=== PATIENT | female | born 1940 | race Caucasian/White ===

== ENCOUNTER 2018-09-09 06:22 | Inpatient (IN) | payer MEDICARE, BC ==
[~2018-09-09 06:22] MED LIST: Lidocaine 1%/Sod Bicarbonate in NS 8.4% 1 ML Syringe IDERM PRN; Sodium Chloride 0.9% 10 ML Syringe FLUSH PRN
[2018-09-09] MEDS ORDERED: Bisacodyl 5 MG Tab PO PRN (06:36)
[2018-09-09] MEDS ORDERED: Morphine 2 MG/ML Syringe IVPUSH PRN (06:36)
[2018-09-09] MEDS ORDERED: Sennosides 8.6 MG Tab PO PRN (06:36)
[2018-09-09] MEDS ORDERED: Magnesium Hydroxide 400 MG/5 ML Susp 30 ML Cup PO PRN (06:36)
[2018-09-09] MEDS ORDERED: Naloxone 0.4 MG/ML SDV IVPUSH PRN (06:36)
[2018-09-09] MEDS: Lactated Ringers 1,000 ML IV SCH ×2 (06:45→11:21)
--- NOTE | 2018-09-09 06:48 | PCM.PREANE ---
Preanesthetic Assessment - Procedure Proposed Procedure: left total knee- inject right - Anesthesia/Transfusion/Family Hx Anesthesia History: Prior Anesthesia Without Reaction Family History of Anesthesia Reaction: No Transfusion History: Prior Transfusion Without Reaction - Review of Systems General: No Symptoms Pulmonary: No Symptoms Cardiovascular: No Symptoms Gastrointestinal: No Symptoms Neurological: No Symptoms, Difficulty Walking (becvause of the knee) Other: Reports: Easy Bruising - Physical Assessment NPO Status Date: 09/08/18 NPO Status Time: 21:00 (sip of water with pills) Pulse: 85 O2 Sat by Pulse Oximetry: 90 Respiratory Rate: 16 Blood Pressure: 164/87 Temperature: 98.1 F Height: 4 ft 11 in Weight: 52.98 kg ASA Class: 2 Mental Status: Alert & Oriented x3 Airway Class: Mallampati = 1 Dentition: Reports: Normal Dentition Thyro-Mental Finger Breadths: 3 Mouth Opening Finger Breadths: 3 ROM/Head Extension: Full Lungs: Clear to Auscultation, Normal Respiratory Effort Cardiovascular: Regular Rate, Regular Rhythm - Lab Values: Laboratory Last Values MRSA (PCR) Negative 08/28/18 14:11 - Allergies Allergies/Adverse Reactions: Allergies Allergy/AdvReac Type Severity Reaction Status Date / Time codeine Allergy Nausea Verified 09/06/18 11:24 - Blood Blood Available: No - Acknowledgements Anesthesia Type Planned: General Anesthesia, Spinal Pt an Appropriate Candidate for the Planned Anesthesia: Yes Alternatives and Risks of Anesthesia Discussed w Pt/Guardian: Yes Pt/Guardian Understands and Agrees with Anesthesia Plan: Yes PreAnesthesia Questionnaire HEENT History: Reports: Impaired Vision Cardiovascular History: Reports: Hypertension Respiratory History: Reports: None Genitourinary History: Reports: None 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: Musculoskeletal History: Reports: Arthritis, Other (See Below) Other Musculoskeletal History: restless leg syndrome, polio with back surgery/ hardware Psychiatric History: Reports: Anxiety, Depression Endocrine/Metabolic History: Reports: None Hematologic History: Reports: None Immunologic History: Reports: None Oncologic (Cancer) History: Reports: None Dermatologic History: Reports: None - Past Surgical History Head Surgeries/Procedures: Reports: None HEENT Surgical History: Reports: Tonsillectomy Cardiovascular Surgical History: Reports: None Respiratory Surgical History: Reports: None GI Surgical History: Reports: Appendectomy Female Surgical History: Reports: Section Male Surgical History: Reports: None Endocrine Surgical History: Reports: None Neurological Surgical History: Reports: Other (See Below) Other Neurological Surgeries/Procedures: polio with back hardware Musculoskeletal Surgical History: Reports: Other (See Below) Other Musculoskeletal Surgeries/Procedures:: left foot surgery Oncologic Surgical History: Reports: None Dermatological Surgical History: Reports: None - History Comment History Comment: severe back deformity- family requests spinal- i assured I would try that first and if not do general - SUBSTANCE USE Smoking Status *Q: Former Smoker (quit 4 weeks ago) Tobacco Use Within Last Twelve Months: Cigarettes Second Hand Smoke Exposure: No Days Per Week of Alcohol Use: 0 Recreational Drug Use History: No - HOME MEDS Home Medications: Home Meds Aspirin 325 mg PO DAILY 09/06/18 [History] Losartan [Cozaar] 50 mg PO DAILY 09/06/18 [History] Losartan [Cozaar] 100 mg PO DAILY 09/06/18 [History] Multivitamin [Daily Multiple Vitamin] 1 tab PO DAILY 09/06/18 [History] Naproxen Sodium 220 mg PO BID 09/06/18 [History] Pramipexole [Mirapex] 0.25 mg PO BEDTIME PRN 09/06/18 [History] clonazePAM [Clonazepam] 1 mg PO BEDTIME PRN 09/06/18 [History] tiZANidine [Zanaflex] 4 mg PO BEDTIME 09/06/18 [History] - CURRENT (IN HOUSE) MEDS Current Meds: Current Medications Lactated Ringer's (Ringers, Lactated) 1,000 mls @ 125 mls/hr IV ASDIRECTED DARLYN Lidocaine/Sodium Bicarbonate (Buffered Lidocaine 1% In Ns 8.4%) 0.25 ml IDERM ONETIME PRN PRN Reason: Prior to IV Start Sodium Chloride (Saline Flush) 10 ml FLUSH ASDIRECTED PRN PRN Reason: Keep Vein Open Discontinued Medications Cefazolin Sodium (Ancef) Confirm Administered Dose 2 gm .ROUTE .STK-MED ONE Stop: 09/09/18 06:41 Tranexamic Acid (Cyklokapron) Confirm Administered Dose 1,000 mg .ROUTE .STK- MED ONE Stop: 09/09/18 06:40 Triamcinolone Acetonide (Kenalog-40) Confirm Administered Dose 80 mg .ROUTE .STK -MED ONE Stop: 09/09/18 06:40 Vancomycin HCl (Vancomycin) Confirm Administered Dose 1 gm .ROUTE .[facility] ONE Stop: 09/09/18 06:41
[2018-09-09] MEDS ORDERED: Ropivacaine 0.5% 5 MG/ML 30 ML SDV ONE (07:47)
[2018-09-09] MEDS ORDERED: EPINEPHrine 1 MG/ML SDV ONE (07:47)
[2018-09-09] MEDS ORDERED: Ondansetron 4 MG/2 ML SDV IVPUSH PRN (07:54)
[2018-09-09] MEDS ORDERED: fentaNYL 100 MCG/2 ML SDV IVPUSH PRN (07:54)
[2018-09-09] MEDS ORDERED: HYDROmorphone 0.5 MG/0.5 ML Syringe IVPUSH PRN (07:54)
[2018-09-09] MEDS ORDERED: Midazolam 1 MG/ML 2 ML SDV ONE (07:59)
[2018-09-09] MEDS ORDERED: ePHEDrine/Normal Saline 25 MG/5 ML Syringe ONE (07:59)
[2018-09-09] MEDS ORDERED: fentaNYL 100 MCG/2 ML SDV ONE ×2 (07:59→09:14)
[2018-09-09] MEDS ORDERED: fentaNYL 250 MCG/5 ML SDV ONE (07:59)
[2018-09-09] MEDS ORDERED: ceFAZolin 1 GM Vial ONE (07:59)
[2018-09-09] MEDS ORDERED: Propofol 200 MG/20 ML SDV ONE (07:59)
[2018-09-09] MEDS ORDERED: Lactated Ringers 1,000 ML ONE (07:59)
[2018-09-09] MEDS ORDERED: Ketamine 500 mg/10 ML MDV ONE (07:59)
[2018-09-09] MEDS ORDERED: Lidocaine 1% 4 ML ONE (07:59)
--- NOTE | 2018-09-09 08:02 | PCM.CONS ---
H&P History of Present Illness - General Date of Service: 09/09/18 Admit Problem/Dx: Admission Diagnosis/Problem Admission Diagnosis/Problem Osteoarthritis of knee Source of Information: Patient, Old Records, Provider, RN, RN Notes Reviewed History Limitations: Reports: No Limitations - History of Present Illness Initial Comments - Free Text/Narative: Ian Do is a 78 yo female patient of Dr. Aiken who is post-operative day 0 of left TKA. Hospital medicine was consulted for post-operative medical care. At this time she is resting comfortably in bed. Pain is Controlled. She denies any chest pain, shortness of breath, palpitations, or vomiting. She is mildly nauseated. She carries a history of: HTN, Polio with back surgery/hardware, Anxiety, Depression, DJD, Insomnia, Leg cramps, RLS, HLD, Kyphoscoliosis. She is a former smoker. She is a full code. Her primary care provider is Dr. Orosco. Knee Pain Score (Numeric/FACES): 12 - Related Data Allergies/Adverse Reactions: Allergies Allergy/AdvReac Type Severity Reaction Status Date / Time codeine Allergy Nausea Verified 09/09/18 07:47 Home Medications: Home Meds Aspirin 325 mg PO DAILY 09/06/18 [History] Losartan [Cozaar] 100 mg PO DAILY 09/06/18 [History] Multivitamin [Daily Multiple Vitamin] 1 tab PO DAILY 09/06/18 [History] Naproxen Sodium 220 mg PO BID 09/06/18 [History] Pramipexole [Mirapex] 0.25 mg PO BEDTIME PRN 09/06/18 [History] clonazePAM [Clonazepam] 1 mg PO BEDTIME PRN 09/06/18 [History] tiZANidine [Zanaflex] 4 mg PO BEDTIME 09/06/18 [History] Cholecalciferol (Vitamin D3) [Vitamin D3] 1 cap PO DAILY 09/09/18 [History] Past Medical History HEENT History: Reports: Impaired Vision Cardiovascular History: Reports: Hypertension Respiratory History: Reports: None Genitourinary History: Reports: None 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: Musculoskeletal History: Reports: Arthritis, Other (See Below) Other Musculoskeletal History: restless leg syndrome, polio with back surgery/ hardware Psychiatric History: Reports: Anxiety, Depression Endocrine/Metabolic History: Reports: None Hematologic History: Reports: None Immunologic History: Reports: None Oncologic (Cancer) History: Reports: None Dermatologic History: Reports: None - Past Surgical History Head Surgeries/Procedures: Reports: None HEENT Surgical History: Reports: Tonsillectomy Cardiovascular Surgical History: Reports: None Respiratory Surgical History: Reports: None GI Surgical History: Reports: Appendectomy Female Surgical History: Reports: Section Male Surgical History: Reports: None Endocrine Surgical History: Reports: None Neurological Surgical History: Reports: Other (See Below) Other Neurological Surgeries/Procedures: polio with back hardware Musculoskeletal Surgical History: Reports: Other (See Below) Other Musculoskeletal Surgeries/Procedures:: left foot surgery Oncologic Surgical History: Reports: None Dermatological Surgical History: Reports: None - History Comment History Comment: severe back deformity- family requests spinal- i assured I would try that first and if not do general Social & Family History - Tobacco Use Smoking Status *Q: Former Smoker (quit 4 weeks ago) Used Tobacco, but Quit: Yes Month/Year Tobacco Last Used: 07/2018 Second Hand Smoke Exposure: No - Caffeine Use Caffeine Use: Reports: Coffee - Alcohol Use Days Per Week of Alcohol Use: 0 - Recreational Drug Use Recreational Drug Use: No H&P Review of Systems - Review of Systems: Review Of Systems: See Below General: Reports: No Symptoms. Denies: Fever, Chills HEENT: Reports: No Symptoms. Denies: Headaches, Sore Throat Pulmonary: Reports: No Symptoms. Denies: Shortness of Breath, Wheezing, Pleuritic Chest Pain, Cough, Sputum Cardiovascular: Reports: No Symptoms. Denies: Chest Pain, Palpitations, Dyspnea on Exertion, Syncope Gastrointestinal: Reports: Nausea. Denies: Abdominal Pain, Constipation, Diarrhea, Vomiting Genitourinary: Reports: No Symptoms. Denies: Pain Musculoskeletal: Reports: Leg Pain Skin: Reports: No Symptoms. Denies: Cyanosis Psychiatric: Reports: No Symptoms. Denies: Confusion Neurological: Reports: No Symptoms Hematologic/Lymphatic: Reports: No Symptoms Immunologic: Reports: No Symptoms Exam - Exam Exam: See Below - Vital Signs Vital Signs: Last Vital Signs Temp 98.1 F 09/09/18 06:56 Pulse 85 09/09/18 06:56 Resp 16 09/09/18 06:56 BP 164/87 H 09/09/18 06:56 Pulse Ox 90 L 09/09/18 06:56 Weight: 116 lb 12.8 oz - Exam Quality Assessment: DVT Prophylaxis General: Alert, Oriented, Cooperative. No: Mild Distress HEENT: Conjunctiva Clear, EACs Clear, EOMI, Hearing Intact, Mucosa Moist & [place] , Normal Nasal Septum, Posterior Pharynx Clear, PERRLA Neck: Supple, Trachea Midline Lungs: Clear to Auscultation, Normal Respiratory Effort Cardiovascular: Regular Rate, Regular Rhythm GI/Abdominal Exam: Normal Bowel Sounds, Soft, Non-Tender, No Organomegaly, No Distention (Female) Exam: Deferred Rectal (Female) Exam: Deferred Back Exam: Decreased Range of Motion Extremities: No Pedal Edema, Normal Capillary Refill, Leg Pain, Limited Range of Motion, Other (Bandage on left leg. Bandage is dry and intact. Cooling pack in place. ) Peripheral Pulses: 2+: Radial (L), Radial (R), Dorsalis Pedis (L), Dorsalis Pedis (R) Skin: Warm, Dry, Intact Neurological: Cranial Nerves Intact (Grossly ) Neuro Extensive - Mental Status: Alert, Oriented x3, Normal Mood/Affect Consult PN Assessment/Plan POD#: 0 Procedures: Procedures ASSAY OF PREALBUMIN (09/03/18) ASSAY OF SERUM ALBUMIN (09/03/18) BL SMEAR W/DIFF WBC COUNT (09/03/18) COMPLETE CBC AUTOMATED (09/03/18) METABOLIC PANEL TOTAL CA (09/03/18) PROTHROMBIN TIME (09/03/18) ROUTINE VENIPUNCTURE (09/03/18) THROMBOPLASTIN TIME PARTIAL (09/03/18) X-RAY EXAM CHEST 2 VIEWS (09/03/18) (1) S/P total knee arthroplasty SNOMED Code(s): 5078105000347, 859321150, 9889953303689 Code(s): Z96.659 - PRESENCE OF UNSPECIFIED ARTIFICIAL KNEE JOINT Priority: High Current Visit: Yes Qualifiers: Laterality: left Qualified Code(s): Z96.652 - Presence of left artificial knee joint (2) Osteoarthritis SNOMED Code(s): 000086356 Code(s): M19.90 - UNSPECIFIED OSTEOARTHRITIS, UNSPECIFIED SITE Priority: High Current Visit: Yes Qualifiers: Osteoarthritis location: knee Osteoarthritis type: primary Laterality: left Qualified Code(s): M17.12 - Unilateral primary osteoarthritis, left knee (3) HTN (hypertension) SNOMED Code(s): 06355657 Code(s): I10 - ESSENTIAL (PRIMARY) HYPERTENSION Priority: Medium Current Visit: No Qualifiers: Hypertension type: unspecified Qualified Code(s): I10 - Essential (primary ) hypertension (4) Personal history of poliomyelitis SNOMED Code(s): 912207671 Code(s): Z86.12 - PERSONAL HISTORY OF POLIOMYELITIS Priority: Medium Current Visit: No (5) Insomnia SNOMED Code(s): 006958283 Code(s): G47.00 - INSOMNIA, UNSPECIFIED Priority: Low Current Visit: No Qualifiers: Insomnia type: unspecified Qualified Code(s): G47.00 - Insomnia, unspecified (6) RLS (restless legs syndrome) SNOMED Code(s): 66836927 Code(s): G25.81 - RESTLESS LEGS SYNDROME Current Visit: Yes (7) HLD (hyperlipidemia) SNOMED Code(s): 11192217 Code(s): E78.5 - HYPERLIPIDEMIA, UNSPECIFIED Priority: Low Current Visit : No Qualifiers: Hyperlipidemia type: unspecified Qualified Code(s): E78.5 - Hyperlipidemia , unspecified (8) Kyphoscoliosis SNOMED Code(s): 764303723 Code(s): M41.9 - SCOLIOSIS, UNSPECIFIED Priority: Low Current Visit: No (9) Postoperative nausea SNOMED Code(s): 95350619 Code(s): R11.0 - NAUSEA; Z98.890 - OTHER SPECIFIED POSTPROCEDURAL STATES Priority: High Current Visit: Yes Problem List Initiated/Reviewed/Updated: Yes Plan: I/P: Acute: S/P left total knee arthroplasty - post-operative day 0 -DVT prophylaxis and pain management per primary care team -PT/OT -IS/RT -Monitor oxygen saturation -Titrate oxygen as needed -Home medications reviewed -Vital signs stable -Monitor labs -Pre-operative Hgb was 13.7 -Pre-operative GFR was >60 Osteoarthritis of left knee -Pain management per primary care team Post-operative nausea -Waxes and wanes -Zofran given with minimal improvement -Scopolamine ordered Chronic: HTN Polio with back surgery/hardware Anxiety Depression DJD Insomnia Leg cramps RLS HLD Kyphoscoliosis Plan: CM for discharge planning GI prophylaxis Home medications as indicated Other orders as listed above Routine AM labs She is a full code. Her PCP is Dr. Orosco Thank you for allowing us to participate in the care of this patient!! Requesting Provider: Dr. Aiken Date Consult Requested: 09/09/18 Reason for Consult: Post-operative medical management Patient History Reviewed: Yes Admission H&P Reviewed: Yes Time Spent (in minutes): 40
[2018-09-09] MEDS: Iodine/Sodium Iodide 2% Tincture 30 ML Bottle ONE ×2 (08:35→09:26)
[2018-09-09] MEDS ORDERED: Ondansetron 4 MG/2 ML SDV ONE (08:35)
[2018-09-09] MEDS: ceFAZolin 1 GM Vial ONE ×2 (08:35→09:30)
[2018-09-09] MEDS: Bupivacaine 0.25% 30 ML SDV ONE ×4 (08:36→10:02)
[2018-09-09] MEDS: Vancomycin 1 GM SDV ONE ×2 (08:36→09:36)
[2018-09-09] MEDS: Morphine 8 MG, EPINEPHrine 0.3 MG, Cefuroxime 750 MG, Ketorolac 30 MG, Sodium Chloride ... ONE ×10 (08:36→09:33)
[2018-09-09] MEDS: Triamcinolone Acetonide 40 MG/ML 1 ML MDV ONE ×2 (08:37→10:02)
--- NOTE | 2018-09-09 10:25 | PCM.POSTAN ---
POST ANESTHESIA ASSESSMENT - MENTAL STATUS Mental Status: Somnolent - VITAL SIGNS Pulse Rate: 91 SaO2: 97 Resp Rate: 12 Blood Pressure: 158/73 Temperature: 98.6 F - RESPIRATORY Respiratory Status: Respiratory Rate WNL, Airway Patent, O2 Saturation Stable, Supplemental Oxygen - CARDIOVASCULAR CV Status: Pulse Rate WNL, Blood Pressure Stable - GASTROINTESTINAL GI Status: No Symptoms - PAIN Pain Score: 0 - POST OP HYDRATION Hydration Status: Adequate & Stable
--- NOTE | 2018-09-09 10:41 | PCM.SN ---
- Free Text/Narrative Note: Left selective femoral nerve block at the adductor canal for post-procedure pain control under US guidance requested by Dr. Aiken. Time Out: 1030 Start: 1032 End: 103 Chart reviewed. Consent signed. Questions answered. Appropriate monitors applied. Time out performed. Left mid-shaft femur identified with ultrasound, scanning medially of femur, the femoral artery in the adductor canal visualized , and the femoral nerve located laterally to the artery. The skin was prepped lateral to the ultrasound probe with chlorahexadine times two. The 21ga 4 insulated block needle was inserted under direct ultrasound guidance into the adductor canal. 25mL of 0.5% ropivacaine with 1:200,000 epinephrine was injected circumferentially around the nerve with intermittent negative aspiration noted. Patient tolerated the procedure well. Sterile technique noted along with sterile gloves, mask, and sterile probe cover. See picture on progress note and vital signs on nurses notes. Block completed in PACU. Emanuel Swartz CRNA
--- NOTE | 2018-09-09 11:06 | CR ---
Left knee: AP and lateral views of the left knee were obtained. Comparison: No previous knee study. Knee prosthesis is seen. Components are aligned. Soft tissue air is noted from the surgical procedure. Underlying bony structures are unremarkable. Impression: 1. Satisfactory postop radiographic appearance of recently placed left knee prosthesis. Diagnostic code #2
[2018-09-09] MEDS: Ondansetron 4 MG/2 ML SDV IVPUSH PRN ×2 (12:39→19:18)
[2018-09-09] MEDS: Acetaminophen/HYDROcodone 325-5 MG Tab PO PRN (12:44)
[2018-09-09] MEDS: Famotidine 20 MG Tab PO SCH ×3 (14:24→18:40)
[2018-09-09] MEDS: ceFAZolin 2 GM in Premix Bag 1 BAG IV SCH ×2 (14:48→22:00)
[2018-09-09] MEDS: Scopolamine 1.5 MG Transdermal Patch TRDERM SCH (17:46)
[2018-09-09] MEDS ORDERED: ClonazePAM 1 MG Tab PO PRN (21:00)
[2018-09-09] MEDS: Docusate Sodium 100 MG Cap PO SCH (21:57)
[2018-09-10] MEDS: Ketorolac 15 MG/ML SDV IVPUSH PRN ×2 (05:00→17:25)
[2018-09-10] MEDS: Famotidine 20 MG Tab PO SCH ×2 (06:14→18:47)
[2018-09-10] MEDS: ceFAZolin 2 GM in Premix Bag 1 BAG IV SCH (06:14)
--- NOTE | 2018-09-10 06:29 | PCM.CONSN ---
- General Info Date of Service: 09/10/18 Admission Dx/Problem (Free Text): Admission Diagnosis/Problem Admission Diagnosis/Problem Osteoarthritis of knee Subjective Update: In to see Neeta. She reports she has been up ambulating and has urinated several times. RT is attempting to wean her off of oxygen. Labs and vital signs continue to look good. She did have some issues with nausea and pain earlier in the day however this has resolved. Primary team reports she will likely be held over until tomorrow for continued work with therapies and work on weaning off of oxygen. Functional Status: Reports: Pain Controlled, Tolerating Diet, Urinating, Incentive Spirometry. Denies: New Symptoms - Review of Systems General: Reports: No Symptoms. Denies: Fever, Chills HEENT: Reports: No Symptoms. Denies: Headaches, Sore Throat Pulmonary: Reports: No Symptoms. Denies: Shortness of Breath, Pleuritic Chest Pain, Cough, Sputum, Wheezing Cardiovascular: Reports: No Symptoms. Denies: Chest Pain, Palpitations, Dyspnea on Exertion, Orthopnea, Edema Gastrointestinal: Reports: No Symptoms. Denies: Abdominal Pain, Constipation, Diarrhea, Nausea, Vomiting Genitourinary: Reports: No Symptoms. Denies: Pain Musculoskeletal: Reports: Leg Pain Skin: Reports: No Symptoms. Denies: Cyanosis Neurological: Reports: No Symptoms. Denies: Confusion Psychiatric: Reports: No Symptoms - Patient Data Vitals - Most Recent: Last Vital Signs Temp 98.1 F 09/10/18 05:06 Pulse 85 09/10/18 05:06 Resp 18 09/10/18 05:06 BP 131/58 L 09/10/18 05:06 Pulse Ox 95 09/10/18 05:06 Weight - Most Recent: 120 lb 3 oz I&O - Last 24 Hours: Intake & Output 09/09/18 09/09/18 09/10/18 14:59 22:59 06:59 Intake Total 300 1870 250 Balance 300 1870 250 Med Orders - Current: Current Medications Hydrocodone Bitart/Acetaminophen ([place] 325-5 Mg) 1 - 2 tab PO Q4H PRN PRN Reason: Pain Last Admin: 09/09/18 12:44 Dose: 2 tab Aspirin (Ecotrin) 325 mg PO BID [facility] Bisacodyl (Dulcolax) 5 mg PO DAILY PRN PRN Reason: Constipation Cholecalciferol (Vitamin D3) 1,000 units PO DAILY [facility] Clonazepam (Klonopin) 1 mg PO BEDTIME PRN PRN Reason: Insomnia Docusate Sodium (Colace) 100 mg PO BID [facility] Last Admin: 09/09/18 21:57 Dose: 100 mg Famotidine (Pepcid) 20 mg PO Q12H [facility] Last Admin: 09/10/18 06:14 Dose: 20 mg Cefazolin Sodium/Dextrose 2 gm (/ Premix) 50 mls @ 100 mls/hr IV Q8H [facility] Stop: 09/10/18 07:29 Last Admin: 09/10/18 06:14 Dose: 100 mls/hr Ketorolac Tromethamine (Toradol) 15 mg IVPUSH Q6H PRN PRN Reason: Pain Last Admin: 09/10/18 05:00 Dose: 15 mg Losartan Potassium (Cozaar) 100 mg PO DAILY [facility] Magnesium Hydroxide (Milk Of Magnesia) 30 ml PO BID PRN PRN Reason: Constipation Miscellaneous Information (Remove Patch) 1 ea TRDERM Q72H [facility] Morphine Sulfate (Morphine) 2 mg IVPUSH Q2H PRN PRN Reason: Breakthrough Pain Multivitamins (Thera) 1 each PO DAILY [facility] Naloxone HCl (Narcan) 0.1 mg IVPUSH Q5M PRN PRN Reason: Oversedation Ondansetron HCl (Zofran) 4 mg IVPUSH Q6H PRN PRN Reason: Nausea/Vomiting Last Admin: 09/09/18 19:18 Dose: 4 mg Pramipexole Dihydrochloride (Mirapex) 0.25 mg PO BEDTIME PRN PRN Reason: restless legs Scopolamine (Transderm-Scop) 1.5 mg TRDERM Q72H [facility] Last Admin: 09/09/18 17:46 Dose: 1.5 mg Senna (Senna) 8.6 mg PO BID PRN PRN Reason: Constipation Tizanidine HCl (Zanaflex) 2 mg PO Q8H PRN PRN Reason: Spasms Discontinued Medications Bupivacaine HCl (Marcaine 0.25%) Confirm Administered Dose 30 ml .ROUTE .STK- MED ONE Stop: 09/09/18 06:41 Last Admin: 09/09/18 10:02 Dose: 4 ml Cefazolin Sodium (Ancef) Confirm Administered Dose 2 gm .ROUTE .STK-MED ONE Stop: 09/09/18 06:41 Last Admin: 09/09/18 09:30 Dose: 2 gm Cefazolin Sodium (Ancef) Confirm Administered Dose 2 gm .ROUTE .STK-MED ONE Stop: 09/09/18 08:00 Morphine Sulfate 8 mg/Epinephrine HCl 0.3 mg/Cefuroxime Sodium 750 mg/Ketorolac Tromethamine 30 mg/Sodium Chloride 27.9 ml 0 mg .XX ONETIME ONE Stop: 09/09/18 07:16 Last Admin: 09/09/18 09:33 Dose: 788.3 mg Ephedrine Sulfate (Ephedrine In Ns) Confirm Administered Dose 25 mg .ROUTE .STK- MED ONE Stop: 09/09/18 08:00 Epinephrine HCl (Adrenalin) Confirm Administered Dose 1 mg .ROUTE .STK-MED ONE Stop: 09/09/18 07:48 Fentanyl (Sublimaze) 50 mcg IVPUSH Q5M PRN PRN Reason: Pain Stop: 09/09/18 23:00 Fentanyl (Sublimaze) Confirm Administered Dose 100 mcg .ROUTE .STK-MED ONE Stop: 09/09/18 08:00 Fentanyl (Sublimaze) Confirm Administered Dose 250 mcg .ROUTE .STK-MED ONE Stop: 09/09/18 08:00 Fentanyl (Sublimaze) Confirm Administered Dose 100 mcg .ROUTE .STK-MED ONE Stop: 09/09/18 09:15 Hydromorphone HCl (Dilaudid) 0.5 mg IVPUSH Q10M PRN PRN Reason: Pain (severe 7-10) Stop: 09/09/18 23:00 Lactated Ringer's (Ringers, Lactated) 1,000 mls @ 125 mls/hr IV ASDIRECTED [facility] Stop: 09/09/18 23:00 Last Admin: 09/09/18 11:21 Dose: 125 mls/hr Lactated Ringer's (Ringers, Lactated) Confirm Administered Dose 1,000 mls @ as directed .ROUTE .STK-MED ONE Stop: 09/09/18 08:00 Lidocaine HCl (Xylocaine-Mpf 1%) Confirm Administered Dose 4 mls @ as directed .ROUTE .STK-MED ONE Stop: 09/09/18 08:00 Iodine (Iodine 2% Mild Tincture) Confirm Administered Dose 30 ml .ROUTE .STK- MED ONE Stop: 09/09/18 06:41 Last Admin: 09/09/18 09:26 Dose: 18 ml Ketamine HCl (Ketalar) Confirm Administered Dose 500 mg .ROUTE .STK-MED ONE Stop: 09/09/18 08:00 Lidocaine/Sodium Bicarbonate (Buffered Lidocaine 1% In Ns 8.4%) 0.25 ml IDERM ONETIME PRN PRN Reason: Prior to IV Start Midazolam HCl (Versed 1 Mg/Ml) Confirm Administered Dose 4 mg .ROUTE .STK-MED ONE Stop: 09/09/18 08:00 Ondansetron HCl (Zofran) 4 mg IVPUSH ONETIME PRN PRN Reason: Nausea/Vomiting Stop: 09/09/18 23:00 Ondansetron HCl (Zofran) Confirm Administered Dose 4 mg .ROUTE .STK-MED ONE Stop: 09/09/18 08:36 Propofol (Diprivan 20 Ml) Confirm Administered Dose 600 mg .ROUTE .STK-MED ONE Stop: 09/09/18 08:00 Ropivacaine (Naropin 0.5%) Confirm Administered Dose 30 ml .ROUTE .STK-MED ONE Stop: 09/09/18 07:48 Sodium Chloride (Saline Flush) 10 ml FLUSH ASDIRECTED PRN PRN Reason: Keep Vein Open Tranexamic Acid (Cyklokapron) Confirm Administered Dose 1,000 mg .ROUTE .STK- MED ONE Stop: 09/09/18 06:40 Last Admin: 09/09/18 09:45 Dose: 1,000 mg Triamcinolone Acetonide (Kenalog-40) Confirm Administered Dose 80 mg .ROUTE .STK -MED ONE Stop: 09/09/18 06:40 Last Admin: 09/09/18 10:02 Dose: 80 mg Vancomycin HCl (Vancomycin) Confirm Administered Dose 1 gm .ROUTE .STK-MED ONE Stop: 09/09/18 06:41 Last Admin: 09/09/18 09:36 Dose: 1 gm - Exam Quality Assessment: DVT Prophylaxis General: Alert, Oriented, Cooperative, No Acute Distress HEENT: Pupils Equal, Pupils Reactive, EOMI, Mucous Membr. Moist/[place] Neck: Supple, Trachea Midline Lungs: Clear to Auscultation, Normal Respiratory Effort Cardiovascular: Regular Rate, Regular Rhythm GI/Abdominal Exam: Normal Bowel Sounds, Soft, Non-Tender, No Organomegaly, No Distention (Female) Exam: Deferred Back Exam: Decreased Range of Motion Extremities: No Pedal Edema, Normal Capillary Refill, Leg Pain, Limited Range of Motion, Other (Bandage in place on left leg. Cooling pack in place. ) Peripheral Pulses: 2+: Radial (L), Radial (R), Dorsalis Pedis (L), Dorsalis Pedis (R) Skin: Warm, Dry, Intact Wound/Incisions: Dressing Dry and Intact, No Drainage Neurological: No New Focal Deficit Psy/Mental Status: Alert, Normal Affect, Normal Mood Consult PN Assessment/Plan POD#: 1 Procedures: Procedures ASSAY OF PREALBUMIN (09/03/18) ASSAY OF SERUM ALBUMIN (09/03/18) BL SMEAR W/DIFF WBC COUNT (09/03/18) COMPLETE CBC AUTOMATED (09/03/18) METABOLIC PANEL TOTAL CA (09/03/18) PROTHROMBIN TIME (09/03/18) ROUTINE VENIPUNCTURE (09/03/18) THROMBOPLASTIN TIME PARTIAL (09/03/18) X-RAY EXAM CHEST 2 VIEWS (09/03/18) (1) S/P total knee arthroplasty SNOMED Code(s): 7347748476982, 196406046, 7730195910542 Code(s): Z96.659 - PRESENCE OF UNSPECIFIED ARTIFICIAL KNEE JOINT Priority: High Current Visit: Yes Qualifiers: Laterality: left Qualified Code(s): Z96.652 - Presence of left artificial knee joint (2) Osteoarthritis SNOMED Code(s): 459618515 Code(s): M19.90 - UNSPECIFIED OSTEOARTHRITIS, UNSPECIFIED SITE Priority: High Current Visit: Yes Qualifiers: Osteoarthritis location: knee Osteoarthritis type: primary Laterality: left Qualified Code(s): M17.12 - Unilateral primary osteoarthritis, left knee (3) HTN (hypertension) SNOMED Code(s): 47402451 Code(s): I10 - ESSENTIAL (PRIMARY) HYPERTENSION Priority: Medium Current Visit: No Qualifiers: Hypertension type: unspecified Qualified Code(s): I10 - Essential (primary ) hypertension (4) Personal history of poliomyelitis SNOMED Code(s): 893076489 Code(s): Z86.12 - PERSONAL HISTORY OF POLIOMYELITIS Priority: Medium Current Visit: No (5) Insomnia SNOMED Code(s): 796343502 Code(s): G47.00 - INSOMNIA, UNSPECIFIED Priority: Low Current Visit: No Qualifiers: Insomnia type: unspecified Qualified Code(s): G47.00 - Insomnia, unspecified (6) RLS (restless legs syndrome) SNOMED Code(s): 19820182 Code(s): G25.81 - RESTLESS LEGS SYNDROME Current Visit: Yes (7) HLD (hyperlipidemia) SNOMED Code(s): 38365858 Code(s): E78.5 - HYPERLIPIDEMIA, UNSPECIFIED Priority: Low Current Visit : No Qualifiers: Hyperlipidemia type: unspecified Qualified Code(s): E78.5 - Hyperlipidemia , unspecified (8) Kyphoscoliosis SNOMED Code(s): 025338791 Code(s): M41.9 - SCOLIOSIS, UNSPECIFIED Priority: Low Current Visit: No (9) Postoperative nausea SNOMED Code(s): 92074859 Code(s): R11.0 - NAUSEA; Z98.890 - OTHER SPECIFIED POSTPROCEDURAL STATES Priority: High Current Visit: Yes Problem List Initiated/Reviewed/Updated: Yes My Orders Last 24 Hours: My Active Orders 09/09/18 17:00 Scopolamine [Transderm-Scop] 1.5 mg TRDERM Q72H Plan: I/P: Acute: S/P left total knee arthroplasty - post-operative day 1 -DVT prophylaxis and pain management per primary care team -PT/OT -IS/RT -Monitor oxygen saturation -Titrate oxygen as needed -Home medications reviewed -Vital signs stable -Monitor labs -Pre-operative Hgb was 13.7; Now 11.3 -Pre-operative GFR was >60; Now >60 Osteoarthritis of left knee -Pain management per primary care team Post-operative nausea -Waxes and wanes -Zofran given with minimal improvement -Scopolamine ordered Chronic: HTN Polio with back surgery/hardware Anxiety Depression DJD Insomnia Leg cramps RLS HLD Kyphoscoliosis Plan: CM for discharge planning GI prophylaxis Home medications as indicated Other orders as listed above Routine AM labs She is a full code. Her PCP is Dr. Orosco Thank you for allowing us to participate in the care of this patient!!
[2018-09-10] MEDS: Ondansetron 4 MG/2 ML SDV IVPUSH PRN (07:56)
--- NOTE | 2018-09-10 07:59 | PCM.SURGPN ---
- General Info Date of Service: 09/10/18 POD#: 1 Functional Status: Reports: Pain Controlled, Tolerating Diet, Ambulating, Urinating, Incentive Spirometry - Review of Systems Musculoskeletal: Reports: Other (The pt's daughter states the pt is progressing well.) - Patient Data Vitals - Most Recent: Last Vital Signs Temp 98.1 F 09/10/18 05:06 Pulse 85 09/10/18 05:06 Resp 18 09/10/18 05:06 BP 131/58 L 09/10/18 05:06 Pulse Ox 95 09/10/18 05:06 Weight - Most Recent: 120 lb 3 oz I&O - Last 24 Hours: Intake & Output 09/09/18 09/10/18 09/10/18 22:59 06:59 14:59 Intake Total 1870 250 Balance 1870 250 Lab Results Last 24 Hrs: Laboratory Results - last 24 hr 09/10/18 09/10/18 Range/Units 06:26 06:26 WBC 9.34 (3.98-10.04) K/mm3 RBC 3.78 L (3.98-5.22) M/mm3 Hgb 11.3 D (11.2-15.7) gm/L Hct 36.0 (34.1-44.9) % MCV 95.2 H (79.4-94.8) fl MCH 29.9 (25.6-32.2) pg MCHC 31.4 L (32.2-35.5) g/dl RDW Std Deviation 51.8 H (36.4-46.3) fL Plt Count 206 (182-369) K/mm3 MPV 11.1 (9.4-12.3) fl Sodium 140 (136-145) mEq/L Potassium 4.5 (3.5-5.1) mEq/L Chloride 104 (98-107) mEq/L Carbon Dioxide 32 (21-32) mEq/L Anion Gap 8.5 (5-15) BUN 16 (7-18) mg/dL Creatinine 0.7 (0.55-1.02) mg/dL Est Cr Clr Drug Dosing 49.11 mL/min Estimated GFR (MDRD) > 60 (>60) mL/min BUN/Creatinine Ratio 22.9 H (14-18) Glucose 92 (83-115) mg/dL Calcium 8.6 (8.5-10.1) mg/dL Total Bilirubin 0.4 (0.2-1.0) mg/dL AST 29 (15-37) U/L ALT 36 (14-59) U/L Alkaline Phosphatase 91 (46-116) U/L Total Protein 5.9 L (6.4-8.2) g/dl Albumin 2.8 L (3.4-5.0) g/dl Globulin 3.1 gm/dL Albumin/Globulin Ratio 0.9 L (1-2) Med Orders - Current: Current Medications Hydrocodone Bitart/Acetaminophen ([place] 325-5 Mg) 1 - 2 tab PO Q4H PRN PRN Reason: Pain Last Admin: 09/09/18 12:44 Dose: 2 tab Aspirin (Ecotrin) 325 mg PO BID [facility] Bisacodyl (Dulcolax) 5 mg PO DAILY PRN PRN Reason: Constipation Cholecalciferol (Vitamin D3) 1,000 units PO DAILY [facility] Clonazepam (Klonopin) 1 mg PO BEDTIME PRN PRN Reason: Insomnia Docusate Sodium (Colace) 100 mg PO BID [facility] Last Admin: 09/09/18 21:57 Dose: 100 mg Famotidine (Pepcid) 20 mg PO Q12H [facility] Last Admin: 09/10/18 06:14 Dose: 20 mg Ketorolac Tromethamine (Toradol) 15 mg IVPUSH Q6H PRN PRN Reason: Pain Last Admin: 09/10/18 05:00 Dose: 15 mg Losartan Potassium (Cozaar) 100 mg PO DAILY [facility] Magnesium Hydroxide (Milk Of Magnesia) 30 ml PO BID PRN PRN Reason: Constipation Miscellaneous Information (Remove Patch) 1 ea TRDERM Q72H [facility] Morphine Sulfate (Morphine) 2 mg IVPUSH Q2H PRN PRN Reason: Breakthrough Pain Multivitamins (Thera) 1 each PO DAILY [facility] Naloxone HCl (Narcan) 0.1 mg IVPUSH Q5M PRN PRN Reason: Oversedation Ondansetron HCl (Zofran) 4 mg IVPUSH Q6H PRN PRN Reason: Nausea/Vomiting Last Admin: 09/09/18 19:18 Dose: 4 mg Pramipexole Dihydrochloride (Mirapex) 0.25 mg PO BEDTIME PRN PRN Reason: restless legs Scopolamine (Transderm-Scop) 1.5 mg TRDERM Q72H [facility] Last Admin: 09/09/18 17:46 Dose: 1.5 mg Senna (Senna) 8.6 mg PO BID PRN PRN Reason: Constipation Tizanidine HCl (Zanaflex) 2 mg PO Q8H PRN PRN Reason: Spasms Discontinued Medications Bupivacaine HCl (Marcaine 0.25%) Confirm Administered Dose 30 ml .ROUTE .STK- MED ONE Stop: 09/09/18 06:41 Last Admin: 09/09/18 10:02 Dose: 4 ml Cefazolin Sodium (Ancef) Confirm Administered Dose 2 gm .ROUTE .STK-MED ONE Stop: 09/09/18 06:41 Last Admin: 09/09/18 09:30 Dose: 2 gm Cefazolin Sodium (Ancef) Confirm Administered Dose 2 gm .ROUTE .STK-MED ONE Stop: 09/09/18 08:00 Morphine Sulfate 8 mg/Epinephrine HCl 0.3 mg/Cefuroxime Sodium 750 mg/Ketorolac Tromethamine 30 mg/Sodium Chloride 27.9 ml 0 mg .XX ONETIME ONE Stop: 09/09/18 07:16 Last Admin: 09/09/18 09:33 Dose: 788.3 mg Ephedrine Sulfate (Ephedrine In Ns) Confirm Administered Dose 25 mg .ROUTE .STK- MED ONE Stop: 09/09/18 08:00 Epinephrine HCl (Adrenalin) Confirm Administered Dose 1 mg .ROUTE .STK-MED ONE Stop: 09/09/18 07:48 Fentanyl (Sublimaze) 50 mcg IVPUSH Q5M PRN PRN Reason: Pain Stop: 09/09/18 23:00 Fentanyl (Sublimaze) Confirm Administered Dose 100 mcg .ROUTE .STK-MED ONE Stop: 09/09/18 08:00 Fentanyl (Sublimaze) Confirm Administered Dose 250 mcg .ROUTE .STK-MED ONE Stop: 09/09/18 08:00 Fentanyl (Sublimaze) Confirm Administered Dose 100 mcg .ROUTE .STK-MED ONE Stop: 09/09/18 09:15 Hydromorphone HCl (Dilaudid) 0.5 mg IVPUSH Q10M PRN PRN Reason: Pain (severe 7-10) Stop: 09/09/18 23:00 Lactated Ringer's (Ringers, Lactated) 1,000 mls @ 125 mls/hr IV ASDIRECTED [facility] Stop: 09/09/18 23:00 Last Admin: 09/09/18 11:21 Dose: 125 mls/hr Cefazolin Sodium/Dextrose 2 gm (/ Premix) 50 mls @ 100 mls/hr IV Q8H [facility] Stop: 09/10/18 07:29 Last Admin: 09/10/18 06:14 Dose: 100 mls/hr Lactated Ringer's (Ringers, Lactated) Confirm Administered Dose 1,000 mls @ as directed .ROUTE .STK-MED ONE Stop: 09/09/18 08:00 Lidocaine HCl (Xylocaine-Mpf 1%) Confirm Administered Dose 4 mls @ as directed .ROUTE .STK-MED ONE Stop: 09/09/18 08:00 Iodine (Iodine 2% Mild Tincture) Confirm Administered Dose 30 ml .ROUTE .STK- MED ONE Stop: 09/09/18 06:41 Last Admin: 09/09/18 09:26 Dose: 18 ml Ketamine HCl (Ketalar) Confirm Administered Dose 500 mg .ROUTE .STK-MED ONE Stop: 09/09/18 08:00 Lidocaine/Sodium Bicarbonate (Buffered Lidocaine 1% In Ns 8.4%) 0.25 ml IDERM ONETIME PRN PRN Reason: Prior to IV Start Midazolam HCl (Versed 1 Mg/Ml) Confirm Administered Dose 4 mg .ROUTE .STK-MED ONE Stop: 09/09/18 08:00 Ondansetron HCl (Zofran) 4 mg IVPUSH ONETIME PRN PRN Reason: Nausea/Vomiting Stop: 09/09/18 23:00 Ondansetron HCl (Zofran) Confirm Administered Dose 4 mg .ROUTE .STK-MED ONE Stop: 09/09/18 08:36 Propofol (Diprivan 20 Ml) Confirm Administered Dose 600 mg .ROUTE .STK-MED ONE Stop: 09/09/18 08:00 Ropivacaine (Naropin 0.5%) Confirm Administered Dose 30 ml .ROUTE .STK-MED ONE Stop: 09/09/18 07:48 Sodium Chloride (Saline Flush) 10 ml FLUSH ASDIRECTED PRN PRN Reason: Keep Vein Open Tranexamic Acid (Cyklokapron) Confirm Administered Dose 1,000 mg .ROUTE .STK- MED ONE Stop: 09/09/18 06:40 Last Admin: 09/09/18 09:45 Dose: 1,000 mg Triamcinolone Acetonide (Kenalog-40) Confirm Administered Dose 80 mg .ROUTE .STK -MED ONE Stop: 09/09/18 06:40 Last Admin: 09/09/18 10:02 Dose: 80 mg Vancomycin HCl (Vancomycin) Confirm Administered Dose 1 gm .ROUTE .STK-MED ONE Stop: 09/09/18 06:41 Last Admin: 09/09/18 09:36 Dose: 1 gm - Exam Wound/Incisions: Dressing Dry and Intact General: Alert, Cooperative, No Acute Distress Lungs: Normal Respiratory Effort Extremities: Other (Rylee's negative for LLE. The pt was able to ambulate in room with assistance.) - Problem List Review Problem List Initiated/Reviewed/Updated: Yes - My Orders Last 24 Hours: Active Orders 24 hr Category Date Time Status Cooling Warming Measures [RC] ASDIRECTED Care 09/09/18 07:54 Inactive Oxygen Therapy [RC] ASDIRECTED Care 09/09/18 07:54 Inactive Pulse Oximetry [RC] ASDIRECTED Care 09/09/18 07:54 Active Vital Signs [RC] Q15M Care 09/09/18 07:54 Inactive Regular Diet [DIET] Diet 09/09/18 Lunch Active Aspirin [Ecotrin] Med 09/10/18 09:00 Active 325 mg PO BID Cholecalciferol (Vitamin D3) [Vitamin D3] Med 09/10/18 09:00 Active 1,000 units PO DAILY ClonazePAM [KlonoPIN] Med 09/09/18 21:00 Active 1 mg PO BEDTIME PRN Docusate Sodium [Colace] Med 09/09/18 21:00 Active 100 mg PO BID Famotidine [Pepcid] Med 09/09/18 07:00 Active 20 mg PO Q12H Ketorolac [Toradol] Med 09/09/18 09:00 Active 15 mg IVPUSH Q6H PRN Losartan [Cozaar] Med 09/10/18 09:00 Hold 100 mg PO DAILY Multivitamins,Therapeutic [Thera] Med 09/10/18 09:00 Active 1 each PO DAILY Pramipexole [Mirapex] Med 09/09/18 21:00 Active 0.25 mg PO BEDTIME PRN Remove Patch Med 09/12/18 17:00 Active 1 ea TRDERM Q72H Scopolamine [Transderm-Scop] Med 09/09/18 17:00 Active 1.5 mg TRDERM Q72H tiZANidine [Zanaflex] Med 09/09/18 12:55 Active 2 mg PO Q8H PRN Medication Orders Hydrocodone Bitart/Acetaminophen ([place] 325-5 Mg) 1 - 2 tab PO Q4H PRN PRN Reason: Pain Last Admin: 09/09/18 12:44 Dose: 2 tab Aspirin (Ecotrin) 325 mg PO BID [facility] Bisacodyl (Dulcolax) 5 mg PO DAILY PRN PRN Reason: Constipation Cholecalciferol (Vitamin D3) 1,000 units PO DAILY [facility] Clonazepam (Klonopin) 1 mg PO BEDTIME PRN PRN Reason: Insomnia Docusate Sodium (Colace) 100 mg PO BID [facility] Last Admin: 09/09/18 21:57 Dose: 100 mg Famotidine (Pepcid) 20 mg PO Q12H [facility] Last Admin: 09/10/18 06:14 Dose: 20 mg Admin: 09/09/18 18:40 Dose: Not Given Admin: 09/09/18 17:47 Dose: 20 mg Admin: 09/09/18 14:24 Dose: Ketorolac Tromethamine (Toradol) 15 mg IVPUSH Q6H PRN PRN Reason: Pain Last Admin: 09/10/18 05:00 Dose: 15 mg Losartan Potassium (Cozaar) 100 mg PO DAILY [facility] Magnesium Hydroxide (Milk Of Magnesia) 30 ml PO BID PRN PRN Reason: Constipation Miscellaneous Information (Remove Patch) 1 ea TRDERM Q72H [facility] Morphine Sulfate (Morphine) 2 mg IVPUSH Q2H PRN PRN Reason: Breakthrough Pain Multivitamins (Thera) 1 each PO DAILY [facility] Naloxone HCl (Narcan) 0.1 mg IVPUSH Q5M PRN PRN Reason: Oversedation Ondansetron HCl (Zofran) 4 mg IVPUSH Q6H PRN PRN Reason: Nausea/Vomiting Last Admin: 09/09/18 19:18 Dose: 4 mg Admin: 09/09/18 12:39 Dose: 4 mg Pramipexole Dihydrochloride (Mirapex) 0.25 mg PO BEDTIME PRN PRN Reason: restless legs Scopolamine (Transderm-Scop) 1.5 mg TRDERM Q72H [facility] Last Admin: 09/09/18 17:46 Dose: 1.5 mg Senna (Senna) 8.6 mg PO BID PRN PRN Reason: Constipation Tizanidine HCl (Zanaflex) 2 mg PO Q8H PRN PRN Reason: Spasms - Assessment Assessment (Free Text/Narrative):: POD#1 - left TKA - Plan Plan (Free Text/Narrative):: 1. Hgb 11.3. 2. ASA PO BID for VTE prophylaxis. SCDs, TEDs. 3. Suspect discharge to [facility] for continued therapy and monitoring due to significant co-morbidities. 4. Continue with P.T. and O.T. The pt's case was discussed with Dr. Aiken.
--- NOTE | 2018-09-10 08:01 | PCM48HPAN ---
Post Anesthesia Note - EVALUATION WITHIN 48HRS OF ANESTHETIC Vital Signs in Normal Range: Yes Patient Participated in Evaluation: Yes Respiratory Function Stable: Yes Airway Patent: Yes Cardiovascular Function Stable: Yes Hydration Status Stable: Yes Pain Control Satisfactory: Yes (pain last fabrizio) Nausea and Vomiting Control Satisfactory: Yes (still occasionally nauseated) Mental Status Recovered: Yes (sitting up in bed- denies pain at this time) Pulse Rate: 85 Resp Rate: 18 Temperature: 98.1 F Blood Pressure: 131/58
[2018-09-10] MEDS: Cholecalciferol (Vitamin D3) 1,000 Unit Tab PO SCH (09:09)
[2018-09-10] MEDS: Aspirin 325 MG Tab.EC PO SCH ×2 (09:10→20:36)
[2018-09-10] MEDS: Docusate Sodium 100 MG Cap PO SCH ×2 (09:10→20:34)
[2018-09-10] MEDS: Multivitamins,Therapeutic Tab PO SCH (09:10)
[2018-09-10] MEDS: Acetaminophen/HYDROcodone 325-5 MG Tab PO PRN ×4 (09:24→23:58)
[2018-09-10] MEDS: Pramipexole 0.25 MG Tab PO PRN (19:45)
[2018-09-10] MEDS: tiZANidine 4 MG Tab PO PRN (19:45)
[2018-09-11] MEDS: Acetaminophen/HYDROcodone 325-5 MG Tab PO PRN ×3 (03:59→12:14)
[2018-09-11] MEDS: Famotidine 20 MG Tab PO SCH (06:13)
--- NOTE | 2018-09-11 06:25 | PCM.CONSN ---
- General Info Date of Service: 09/11/18 Admission Dx/Problem (Free Text): Admission Diagnosis/Problem Admission Diagnosis/Problem Osteoarthritis of knee Functional Status: Reports: Pain Controlled, Tolerating Diet, Ambulating, Urinating, Incentive Spirometry. Denies: New Symptoms - Review of Systems General: Reports: No Symptoms. Denies: Fever, Weakness, Fatigue, Malaise, Chills HEENT: Reports: No Symptoms. Denies: Headaches, Sore Throat Pulmonary: Reports: Shortness of Breath. Denies: Wheezing Cardiovascular: Reports: No Symptoms, Dyspnea on Exertion. Denies: Chest Pain, Palpitations Gastrointestinal: Reports: No Symptoms. Denies: Abdominal Pain, Constipation, Diarrhea, Nausea, Vomiting Genitourinary: Reports: No Symptoms. Denies: Pain Musculoskeletal: Reports: Leg Pain Skin: Reports: No Symptoms. Denies: Cyanosis Neurological: Reports: No Symptoms. Denies: Confusion Psychiatric: Reports: No Symptoms - Patient Data Vitals - Most Recent: Last Vital Signs Temp 97.9 F 09/11/18 03:49 Pulse 87 09/11/18 04:15 Resp 16 09/11/18 03:49 BP 107/49 L 09/11/18 04:15 Pulse Ox 91 L 09/11/18 04:15 Weight - Most Recent: 121 lb 2 oz I&O - Last 24 Hours: Intake & Output 09/10/18 09/10/18 09/11/18 14:59 22:59 06:59 Intake Total 160 860 425 Output Total 625 150 Balance 160 235 275 Lab Results Last 24 Hours: Laboratory Results - last 24 hr 09/10/18 09/10/18 Range/Units 06:26 06:26 WBC 9.34 (3.98-10.04) K/mm3 RBC 3.78 L (3.98-5.22) M/mm3 Hgb 11.3 D (11.2-15.7) gm/L Hct 36.0 (34.1-44.9) % MCV 95.2 H (79.4-94.8) fl MCH 29.9 (25.6-32.2) pg MCHC 31.4 L (32.2-35.5) g/dl RDW Std Deviation 51.8 H (36.4-46.3) fL Plt Count 206 (182-369) K/mm3 MPV 11.1 (9.4-12.3) fl Sodium 140 (136-145) mEq/L Potassium 4.5 (3.5-5.1) mEq/L Chloride 104 (98-107) mEq/L Carbon Dioxide 32 (21-32) mEq/L Anion Gap 8.5 (5-15) BUN 16 (7-18) mg/dL Creatinine 0.7 (0.55-1.02) mg/dL Est Cr Clr Drug Dosing 49.11 mL/min Estimated GFR (MDRD) > 60 (>60) mL/min BUN/Creatinine Ratio 22.9 H (14-18) Glucose 92 (83-115) mg/dL Calcium 8.6 (8.5-10.1) mg/dL Total Bilirubin 0.4 (0.2-1.0) mg/dL AST 29 (15-37) U/L ALT 36 (14-59) U/L Alkaline Phosphatase 91 (46-116) U/L Total Protein 5.9 L (6.4-8.2) g/dl Albumin 2.8 L (3.4-5.0) g/dl Globulin 3.1 gm/dL Albumin/Globulin Ratio 0.9 L (1-2) Med Orders - Current: Current Medications Hydrocodone Bitart/Acetaminophen ([place] 325-5 Mg) 1 - 2 tab PO Q4H PRN PRN Reason: Pain Last Admin: 09/11/18 03:59 Dose: 1 tab Aspirin (Ecotrin) 325 mg PO BID [facility] Last Admin: 09/10/18 20:36 Dose: 325 mg Bisacodyl (Dulcolax) 5 mg PO DAILY PRN PRN Reason: Constipation Cholecalciferol (Vitamin D3) 1,000 units PO DAILY [facility] Last Admin: 09/10/18 09:09 Dose: 1,000 units Clonazepam (Klonopin) 1 mg PO BEDTIME PRN PRN Reason: Insomnia Docusate Sodium (Colace) 100 mg PO BID [facility] Last Admin: 09/10/18 20:34 Dose: 100 mg Famotidine (Pepcid) 20 mg PO Q12H [facility] Last Admin: 09/11/18 06:13 Dose: 20 mg Losartan Potassium (Cozaar) 100 mg PO DAILY [facility] Magnesium Hydroxide (Milk Of Magnesia) 30 ml PO BID PRN PRN Reason: Constipation Miscellaneous Information (Remove Patch) 1 ea TRDERM Q72H [facility] Morphine Sulfate (Morphine) 2 mg IVPUSH Q2H PRN PRN Reason: Breakthrough Pain Last Admin: 09/10/18 07:52 Dose: 2 mg Multivitamins (Thera) 1 each PO DAILY [facility] Last Admin: 09/10/18 09:10 Dose: 1 each Naloxone HCl (Narcan) 0.1 mg IVPUSH Q5M PRN PRN Reason: Oversedation Ondansetron HCl (Zofran) 4 mg IVPUSH Q6H PRN PRN Reason: Nausea/Vomiting Last Admin: 09/10/18 07:56 Dose: 4 mg Pramipexole Dihydrochloride (Mirapex) 0.25 mg PO BEDTIME PRN PRN Reason: restless legs Last Admin: 09/10/18 19:45 Dose: 0.25 mg Scopolamine (Transderm-Scop) 1.5 mg TRDERM Q72H [facility] Last Admin: 09/09/18 17:46 Dose: 1.5 mg Senna (Senna) 8.6 mg PO BID PRN PRN Reason: Constipation Tizanidine HCl (Zanaflex) 2 mg PO Q8H PRN PRN Reason: Spasms Last Admin: 09/10/18 19:45 Dose: 2 mg Discontinued Medications Bupivacaine HCl (Marcaine 0.25%) Confirm Administered Dose 30 ml .ROUTE .STK- MED ONE Stop: 09/09/18 06:41 Last Admin: 09/09/18 10:02 Dose: 4 ml Cefazolin Sodium (Ancef) Confirm Administered Dose 2 gm .ROUTE .STK-MED ONE Stop: 09/09/18 06:41 Last Admin: 09/09/18 09:30 Dose: 2 gm Cefazolin Sodium (Ancef) Confirm Administered Dose 2 gm .ROUTE .STK-MED ONE Stop: 09/09/18 08:00 Morphine Sulfate 8 mg/Epinephrine HCl 0.3 mg/Cefuroxime Sodium 750 mg/Ketorolac Tromethamine 30 mg/Sodium Chloride 27.9 ml 0 mg .XX ONETIME ONE Stop: 09/09/18 07:16 Last Admin: 09/09/18 09:33 Dose: 788.3 mg Ephedrine Sulfate (Ephedrine In Ns) Confirm Administered Dose 25 mg .ROUTE .STK- MED ONE Stop: 09/09/18 08:00 Epinephrine HCl (Adrenalin) Confirm Administered Dose 1 mg .ROUTE .STK-MED ONE Stop: 09/09/18 07:48 Fentanyl (Sublimaze) 50 mcg IVPUSH Q5M PRN PRN Reason: Pain Stop: 09/09/18 23:00 Fentanyl (Sublimaze) Confirm Administered Dose 100 mcg .ROUTE .STK-MED ONE Stop: 09/09/18 08:00 Fentanyl (Sublimaze) Confirm Administered Dose 250 mcg .ROUTE .STK-MED ONE Stop: 09/09/18 08:00 Fentanyl (Sublimaze) Confirm Administered Dose 100 mcg .ROUTE .STK-MED ONE Stop: 09/09/18 09:15 Hydromorphone HCl (Dilaudid) 0.5 mg IVPUSH Q10M PRN PRN Reason: Pain (severe 7-10) Stop: 09/09/18 23:00 Lactated Ringer's (Ringers, Lactated) 1,000 mls @ 125 mls/hr IV ASDIRECTED [facility] Stop: 09/09/18 23:00 Last Admin: 09/09/18 11:21 Dose: 125 mls/hr Cefazolin Sodium/Dextrose 2 gm (/ Premix) 50 mls @ 100 mls/hr IV Q8H [facility] Stop: 09/10/18 07:29 Last Admin: 09/10/18 06:14 Dose: 100 mls/hr Lactated Ringer's (Ringers, Lactated) Confirm Administered Dose 1,000 mls @ as directed .ROUTE .STK-MED ONE Stop: 09/09/18 08:00 Lidocaine HCl (Xylocaine-Mpf 1%) Confirm Administered Dose 4 mls @ as directed .ROUTE .STK-MED ONE Stop: 09/09/18 08:00 Iodine (Iodine 2% Mild Tincture) Confirm Administered Dose 30 ml .ROUTE .STK- MED ONE Stop: 09/09/18 06:41 Last Admin: 09/09/18 09:26 Dose: 18 ml Ketamine HCl (Ketalar) Confirm Administered Dose 500 mg .ROUTE .STK-MED ONE Stop: 09/09/18 08:00 Ketorolac Tromethamine (Toradol) 15 mg IVPUSH Q6H PRN PRN Reason: Pain Last Admin: 09/10/18 17:25 Dose: 15 mg Lidocaine/Sodium Bicarbonate (Buffered Lidocaine 1% In Ns 8.4%) 0.25 ml IDERM ONETIME PRN PRN Reason: Prior to IV Start Midazolam HCl (Versed 1 Mg/Ml) Confirm Administered Dose 4 mg .ROUTE .STK-MED ONE Stop: 09/09/18 08:00 Ondansetron HCl (Zofran) 4 mg IVPUSH ONETIME PRN PRN Reason: Nausea/Vomiting Stop: 09/09/18 23:00 Ondansetron HCl (Zofran) Confirm Administered Dose 4 mg .ROUTE .STK-MED ONE Stop: 09/09/18 08:36 Propofol (Diprivan 20 Ml) Confirm Administered Dose 600 mg .ROUTE .STK-MED ONE Stop: 09/09/18 08:00 Ropivacaine (Naropin 0.5%) Confirm Administered Dose 30 ml .ROUTE .STK-MED ONE Stop: 09/09/18 07:48 Sodium Chloride (Saline Flush) 10 ml FLUSH ASDIRECTED PRN PRN Reason: Keep Vein Open Tranexamic Acid (Cyklokapron) Confirm Administered Dose 1,000 mg .ROUTE .STK- MED ONE Stop: 09/09/18 06:40 Last Admin: 09/09/18 09:45 Dose: 1,000 mg Triamcinolone Acetonide (Kenalog-40) Confirm Administered Dose 80 mg .ROUTE .STK -MED ONE Stop: 09/09/18 06:40 Last Admin: 09/09/18 10:02 Dose: 80 mg Vancomycin HCl (Vancomycin) Confirm Administered Dose 1 gm .ROUTE .STK-MED ONE Stop: 09/09/18 06:41 Last Admin: 09/09/18 09:36 Dose: 1 gm - Exam Quality Assessment: Supplemental Oxygen (3L), DVT Prophylaxis General: Alert, Oriented, Cooperative, No Acute Distress HEENT: Pupils Equal, Pupils Reactive, EOMI, Mucous Membr. Moist/[place] Neck: Supple, Trachea Midline, No JVD Lungs: Clear to Auscultation, Normal Respiratory Effort Cardiovascular: Regular Rate, Regular Rhythm GI/Abdominal Exam: Normal Bowel Sounds, Soft, Non-Tender, No Organomegaly, No Distention (Female) Exam: Deferred Back Exam: Decreased Range of Motion Extremities: No Pedal Edema, Normal Capillary Refill, Leg Pain, Limited Range of Motion, Other (Bandage in place on left leg. Cooling pack in place. ) Peripheral Pulses: 2+: Radial (L), Radial (R), Dorsalis Pedis (L), Dorsalis Pedis (R) Skin: Warm, Dry, Intact Wound/Incisions: Dressing Dry and Intact, No Drainage Neurological: No New Focal Deficit Psy/Mental Status: Alert, Normal Affect, Normal Mood Consult PN Assessment/Plan POD#: 2 Procedures: Procedures ASSAY OF PREALBUMIN (09/03/18) ASSAY OF SERUM ALBUMIN (09/03/18) BL SMEAR W/DIFF WBC COUNT (09/03/18) COMPLETE CBC AUTOMATED (09/03/18) METABOLIC PANEL TOTAL CA (09/03/18) PROTHROMBIN TIME (09/03/18) ROUTINE VENIPUNCTURE (09/03/18) THROMBOPLASTIN TIME PARTIAL (09/03/18) X-RAY EXAM CHEST 2 VIEWS (09/03/18) (1) S/P total knee arthroplasty SNOMED Code(s): 3470793580584, 817555377, 6231839560337 Code(s): Z96.659 - PRESENCE OF UNSPECIFIED ARTIFICIAL KNEE JOINT Priority: High Current Visit: Yes Qualifiers: Laterality: left Qualified Code(s): Z96.652 - Presence of left artificial knee joint (2) Osteoarthritis SNOMED Code(s): 660302316 Code(s): M19.90 - UNSPECIFIED OSTEOARTHRITIS, UNSPECIFIED SITE Priority: High Current Visit: Yes Qualifiers: Osteoarthritis location: knee Osteoarthritis type: primary Laterality: left Qualified Code(s): M17.12 - Unilateral primary osteoarthritis, left knee (3) HTN (hypertension) SNOMED Code(s): 06526167 Code(s): I10 - ESSENTIAL (PRIMARY) HYPERTENSION Priority: Medium Current Visit: No Qualifiers: Hypertension type: unspecified Qualified Code(s): I10 - Essential (primary ) hypertension (4) Personal history of poliomyelitis SNOMED Code(s): 759547940 Code(s): Z86.12 - PERSONAL HISTORY OF POLIOMYELITIS Priority: Medium Current Visit: No (5) Insomnia SNOMED Code(s): 806300852 Code(s): G47.00 - INSOMNIA, UNSPECIFIED Priority: Low Current Visit: No Qualifiers: Insomnia type: unspecified Qualified Code(s): G47.00 - Insomnia, unspecified (6) RLS (restless legs syndrome) SNOMED Code(s): 34930343 Code(s): G25.81 - RESTLESS LEGS SYNDROME Current Visit: Yes (7) HLD (hyperlipidemia) SNOMED Code(s): 76071425 Code(s): E78.5 - HYPERLIPIDEMIA, UNSPECIFIED Priority: Low Current Visit : No Qualifiers: Hyperlipidemia type: unspecified Qualified Code(s): E78.5 - Hyperlipidemia , unspecified (8) Kyphoscoliosis SNOMED Code(s): 731398414 Code(s): M41.9 - SCOLIOSIS, UNSPECIFIED Priority: Low Current Visit: No (9) Postoperative nausea SNOMED Code(s): 00964671 Code(s): R11.0 - NAUSEA; Z98.890 - OTHER SPECIFIED POSTPROCEDURAL STATES Priority: High Current Visit: Yes (10) Hypoxia SNOMED Code(s): 963277057 Code(s): R09.02 - HYPOXEMIA Priority: High Current Visit: Yes Problem List Initiated/Reviewed/Updated: Yes My Orders Last 24 Hours: My Active Orders 09/11/18 05:11 BASIC METABOLIC PANEL,BMP [CHEM] Routine CBC WITH AUTO DIFF [HEME] Routine MG [MAGNESIUM] [CHEM] Routine Plan: I/P: Acute: S/P left total knee arthroplasty - post-operative day 2 -DVT prophylaxis and pain management per primary care team -PT/OT -IS/RT -Monitor oxygen saturation -Titrate oxygen as needed -Home medications reviewed -Vital signs stable -Monitor labs -Pre-operative Hgb was 13.7; Now 11.3--> 10.8 -Pre-operative GFR was >60; Now >60--> greater than 60 Osteoarthritis of left knee -Pain management per primary care team Hypoxia -Up to 3L O2 currently -Saturations drop into the 70's when off O2 -No pain, cough, fever -CXR questionable CHF, restriction -BNP 3066 - likely skewed 2/2 surgery -No edema or hx/o heart failure -Discussed with Dr. Posada. He does not feel this is heart failure related Hypomagnesemia -Magnesium 1.7 -Supplement Resolved: S/P Post-operative nausea -Waxes and wanes -Zofran given with minimal improvement -Scopolamine ordered Chronic: HTN Polio with back surgery/hardware Anxiety Depression DJD Insomnia Leg cramps RLS HLD Kyphoscoliosis Plan: CM for discharge planning GI prophylaxis Home medications as indicated Other orders as listed above Routine AM labs She is a full code. Her PCP is Dr. Orosco Thank you for allowing us to participate in the care of this patient!!
[2018-09-11] MEDS: Cholecalciferol (Vitamin D3) 1,000 Unit Tab PO SCH (08:05)
[2018-09-11] MEDS: Multivitamins,Therapeutic Tab PO SCH (08:05)
[2018-09-11] MEDS: Aspirin 325 MG Tab.EC PO SCH ×2 (08:05→21:36)
[2018-09-11] MEDS: Docusate Sodium 100 MG Cap PO SCH ×2 (08:06→21:35)
--- NOTE | 2018-09-11 09:21 | CR ---
Chest: Two views of the chest were obtained. Comparison: Prior chest x-ray 09/03/18. Heart is questionably enlarged. Increased central lung markings are seen which are more prominent than on prior study. No alveolar type densities are seen. Kyphoscoliosis is again noted. Osteopenia is present. Disc calcification is noted within the lower thoracic spine. Vascular calcification is noted within the aorta. Impression: 1. Heart size questionably enlarged. Increased central lung markings from prior exam possibly due to bronchitis or early CHF. 2. Other incidental findings. Diagnostic code #3
[2018-09-11] MEDS: Ondansetron 4 MG/2 ML SDV IVPUSH PRN (09:34)
[2018-09-11] MEDS: Magnesium Oxide 400 MG Tab PO SCH ×3 (09:35→21:35)
[2018-09-11] MEDS: Losartan 100 MG Tab PO SCH (09:37)
[2018-09-11] MEDS: tiZANidine 4 MG Tab PO PRN ×2 (11:18→21:35)
[2018-09-11] MEDS ORDERED: Acetaminophen/oxyCODONE 325-5 MG Tab PO PRN (14:54)
[2018-09-11] MEDS ORDERED: Ketorolac 30 MG/ML SDV IVPUSH PRN (14:55)
--- NOTE | 2018-09-11 17:18 | PCM.SURGPN ---
- General Info Date of Service: 09/11/18 POD#: 2 (Daughter states pt has had difficulty managing pain. Pt states she is comfortable this afternoon.) Functional Status: Reports: Tolerating Diet, Ambulating, Urinating - Review of Systems Pulmonary: Reports: Other (Daughter states pt's breathing is without significant change from the pt's usual status.) - Patient Data Vitals - Most Recent: Last Vital Signs Temp 97.7 F 09/11/18 16:32 Pulse 80 09/11/18 16:32 Resp 18 09/11/18 16:32 BP 112/62 09/11/18 16:32 Pulse Ox 95 09/11/18 16:32 Weight - Most Recent: 121 lb 2 oz I&O - Last 24 Hours: Intake & Output 09/11/18 09/11/18 09/11/18 06:59 14:59 22:59 Intake Total 425 180 180 Output Total 150 Balance 275 180 180 Lab Results Last 24 Hrs: Laboratory Results - last 24 hr 09/11/18 09/11/18 09/11/18 Range/Units 06:04 06:04 09:56 WBC 11.00 H (3.98-10.04) K/mm3 RBC 3.68 L (3.98-5.22) M/mm3 Hgb 10.8 L (11.2-15.7) gm/L Hct 35.0 (34.1-44.9) % MCV 95.1 H (79.4-94.8) fl MCH 29.3 (25.6-32.2) pg MCHC 30.9 L (32.2-35.5) g/dl RDW Std Deviation 51.0 H (36.4-46.3) fL Plt Count 188 (182-369) K/mm3 MPV 11.4 (9.4-12.3) fl Neut % (Auto) 83.0 H (34.0-71.1) % Lymph % (Auto) 7.8 L (19.3-51.7) % [place] % (Auto) 8.1 (4.7-12.5) % Eos % (Auto) 0.7 (0.7-5.8) Baso % (Auto) 0.1 (0.1-1.2) % Neut # (Auto) 9.13 H (1.56-6.13) K/mm3 Lymph # (Auto) 0.86 L (1.18-3.74) K/mm3 [place] # (Auto) 0.89 H (0.24-0.36) K/mm3 Eos # (Auto) 0.08 (0.04-0.36) K/mm3 Baso # (Auto) 0.01 (0.01-0.08) K/mm3 Manual Slide Review Abnormal smear Sodium 138 (136-145) mEq/L Potassium 4.5 (3.5-5.1) mEq/L Chloride 103 (98-107) mEq/L Carbon Dioxide 28 (21-32) mEq/L Anion Gap 11.5 (5-15) BUN 20 H (7-18) mg/dL Creatinine 0.8 (0.55-1.02) mg/dL Est Cr Clr Drug Dosing 42.97 mL/min Estimated GFR (MDRD) > 60 (>60) mL/min BUN/Creatinine Ratio 25.0 H (14-18) Glucose 117 H (83-115) mg/dL Calcium 9.0 (8.5-10.1) mg/dL Magnesium 1.7 L (1.8-2.4) mg/dl NT-Pro-B Natriuret Pep 3066 H (0-450) pg/mL Med Orders - Current: Current Medications Aspirin (Ecotrin) 325 mg PO BID [facility] Last Admin: 09/11/18 08:05 Dose: 325 mg Bisacodyl (Dulcolax) 5 mg PO DAILY PRN PRN Reason: Constipation Cholecalciferol (Vitamin D3) 1,000 units PO DAILY [facility] Last Admin: 09/11/18 08:05 Dose: 1,000 units Clonazepam (Klonopin) 1 mg PO BEDTIME PRN PRN Reason: Insomnia Docusate Sodium (Colace) 100 mg PO BID [facility] Last Admin: 09/11/18 08:06 Dose: 100 mg Famotidine (Pepcid) 20 mg PO DAILY [facility] Ketorolac Tromethamine (Toradol) 30 mg IVPUSH ONETIME PRN PRN Reason: Pain Losartan Potassium (Cozaar) 100 mg PO DAILY [facility] Last Admin: 09/11/18 09:37 Dose: 100 mg Magnesium Hydroxide (Milk Of Magnesia) 30 ml PO BID PRN PRN Reason: Constipation Magnesium Oxide (Magnesium Oxide) 400 mg PO TID [facility] Stop: 09/11/18 21:01 Last Admin: 09/11/18 15:07 Dose: 400 mg Magnesium Sulfate (Pharmacy To Dose - Magnesium Replacement) 0 dose .XX ASDIRECTED PRN PRN Reason: RX TO WATCH MAG LEVELS Miscellaneous Information (Remove Patch) 1 ea TRDERM Q72H [facility] Morphine Sulfate (Morphine) 2 mg IVPUSH Q2H PRN PRN Reason: Breakthrough Pain Last Admin: 09/10/18 07:52 Dose: 2 mg Multivitamins (Thera) 1 each PO DAILY [facility] Last Admin: 09/11/18 08:05 Dose: 1 each Naloxone HCl (Narcan) 0.1 mg IVPUSH Q5M PRN PRN Reason: Oversedation Ondansetron HCl (Zofran) 4 mg IVPUSH Q6H PRN PRN Reason: Nausea/Vomiting Last Admin: 09/11/18 09:34 Dose: 4 mg Oxycodone/Acetaminophen (Percocet 325-5 Mg) 1 - 2 tab PO Q4H PRN PRN Reason: Pain Last Admin: 09/11/18 16:38 Dose: 2 tab Potassium Chloride (Pharmacy To Dose - Potassium Replacement) 0 dose .XX ASDIRECTED PRN PRN Reason: RX TO WATCH K LEVELS Pramipexole Dihydrochloride (Mirapex) 0.25 mg PO BEDTIME PRN PRN Reason: restless legs Last Admin: 09/10/18 19:45 Dose: 0.25 mg Scopolamine (Transderm-Scop) 1.5 mg TRDERM Q72H [facility] Last Admin: 09/09/18 17:46 Dose: 1.5 mg Senna (Senna) 8.6 mg PO BID PRN PRN Reason: Constipation Last Admin: 09/11/18 08:06 Dose: 8.6 mg Tizanidine HCl (Zanaflex) 2 mg PO Q8H PRN PRN Reason: Spasms Last Admin: 09/11/18 11:18 Dose: 2 mg Discontinued Medications Hydrocodone Bitart/Acetaminophen ([place]ord 325-5 Mg) 1 - 2 tab PO Q4H PRN PRN Reason: Pain Last Admin: 09/11/18 12:14 Dose: 2 tab Bupivacaine HCl (Marcaine 0.25%) Confirm Administered Dose 30 ml .ROUTE .STK- MED ONE Stop: 09/09/18 06:41 Last Admin: 09/09/18 10:02 Dose: 4 ml Cefazolin Sodium (Ancef) Confirm Administered Dose 2 gm .ROUTE .STK-MED ONE Stop: 09/09/18 06:41 Last Admin: 09/09/18 09:30 Dose: 2 gm Cefazolin Sodium (Ancef) Confirm Administered Dose 2 gm .ROUTE .STK-MED ONE Stop: 09/09/18 08:00 Morphine Sulfate 8 mg/Epinephrine HCl 0.3 mg/Cefuroxime Sodium 750 mg/Ketorolac Tromethamine 30 mg/Sodium Chloride 27.9 ml 0 mg .XX ONETIME ONE Stop: 09/09/18 07:16 Last Admin: 09/09/18 09:33 Dose: 788.3 mg Ephedrine Sulfate (Ephedrine In Ns) Confirm Administered Dose 25 mg .ROUTE .STK- MED ONE Stop: 09/09/18 08:00 Epinephrine HCl (Adrenalin) Confirm Administered Dose 1 mg .ROUTE .STK-MED ONE Stop: 09/09/18 07:48 Famotidine (Pepcid) 20 mg PO Q12H [facility] Last Admin: 09/11/18 06:13 Dose: 20 mg Fentanyl (Sublimaze) 50 mcg IVPUSH Q5M PRN PRN Reason: Pain Stop: 09/09/18 23:00 Fentanyl (Sublimaze) Confirm Administered Dose 100 mcg .ROUTE .STK-MED ONE Stop: 09/09/18 08:00 Fentanyl (Sublimaze) Confirm Administered Dose 250 mcg .ROUTE .STK-MED ONE Stop: 09/09/18 08:00 Fentanyl (Sublimaze) Confirm Administered Dose 100 mcg .ROUTE .STK-MED ONE Stop: 09/09/18 09:15 Hydromorphone HCl (Dilaudid) 0.5 mg IVPUSH Q10M PRN PRN Reason: Pain (severe 7-10) Stop: 09/09/18 23:00 Lactated Ringer's (Ringers, Lactated) 1,000 mls @ 125 mls/hr IV ASDIRECTED DARLYN Stop: 09/09/18 23:00 Last Admin: 09/09/18 11:21 Dose: 125 mls/hr Cefazolin Sodium/Dextrose 2 gm (/ Premix) 50 mls @ 100 mls/hr IV Q8H DARLYN Stop: 09/10/18 07:29 Last Admin: 09/10/18 06:14 Dose: 100 mls/hr Lactated Ringer's (Ringers, Lactated) Confirm Administered Dose 1,000 mls @ as directed .ROUTE .STK-MED ONE Stop: 09/09/18 08:00 Lidocaine HCl (Xylocaine-Mpf 1%) Confirm Administered Dose 4 mls @ as directed .ROUTE .STK-MED ONE Stop: 09/09/18 08:00 Iodine (Iodine 2% Mild Tincture) Confirm Administered Dose 30 ml .ROUTE .STK- MED ONE Stop: 09/09/18 06:41 Last Admin: 09/09/18 09:26 Dose: 18 ml Ketamine HCl (Ketalar) Confirm Administered Dose 500 mg .ROUTE .STK-MED ONE Stop: 09/09/18 08:00 Ketorolac Tromethamine (Toradol) 15 mg IVPUSH Q6H PRN PRN Reason: Pain Last Admin: 09/10/18 17:25 Dose: 15 mg Lidocaine/Sodium Bicarbonate (Buffered Lidocaine 1% In Ns 8.4%) 0.25 ml IDERM ONETIME PRN PRN Reason: Prior to IV Start Midazolam HCl (Versed 1 Mg/Ml) Confirm Administered Dose 4 mg .ROUTE .STK-MED ONE Stop: 09/09/18 08:00 Ondansetron HCl (Zofran) 4 mg IVPUSH ONETIME PRN PRN Reason: Nausea/Vomiting Stop: 09/09/18 23:00 Ondansetron HCl (Zofran) Confirm Administered Dose 4 mg .ROUTE .STK-MED ONE Stop: 09/09/18 08:36 Propofol (Diprivan 20 Ml) Confirm Administered Dose 600 mg .ROUTE .STK-MED ONE Stop: 09/09/18 08:00 Ropivacaine (Naropin 0.5%) Confirm Administered Dose 30 ml .ROUTE .STK-MED ONE Stop: 09/09/18 07:48 Sodium Chloride (Saline Flush) 10 ml FLUSH ASDIRECTED PRN PRN Reason: Keep Vein Open Tranexamic Acid (Cyklokapron) Confirm Administered Dose 1,000 mg .ROUTE .STK- MED ONE Stop: 09/09/18 06:40 Last Admin: 09/09/18 09:45 Dose: 1,000 mg Triamcinolone Acetonide (Kenalog-40) Confirm Administered Dose 80 mg .ROUTE .STK -MED ONE Stop: 09/09/18 06:40 Last Admin: 09/09/18 10:02 Dose: 80 mg Vancomycin HCl (Vancomycin) Confirm Administered Dose 1 gm .ROUTE .STK-MED ONE Stop: 09/09/18 06:41 Last Admin: 09/09/18 09:36 Dose: 1 gm - Exam Wound/Incisions: Other (Shadowing noted at inferolateral portion of dressing at left knee. ) Quality Assessment: Supplemental Oxygen General: Cooperative Lungs: Other (Some accessory muscle use with respirations noted today.) Extremities: Other (Pt was able to sense light touch at LLE. Rylee's negative. ) - Problem List Review Problem List Initiated/Reviewed/Updated: Yes - My Orders Last 24 Hours: Active Orders 24 hr Category Date Time Status Acetaminophen/oxyCODONE [Percocet 325-5 MG] Med 09/11/18 14:54 Active 1 - 2 tab PO Q4H PRN Famotidine [Pepcid] Med 09/12/18 09:00 Active 20 mg PO DAILY Ketorolac [Toradol] Med 09/11/18 14:55 Active 30 mg IVPUSH ONETIME PRN Magnesium Oxide Med 09/11/18 09:00 Active 400 mg PO TID Pharmacy to Dose - Magnesium R [Pharmacy to Dose - Med 09/11/18 09:15 Active Magnesium Replacement] 0 dose .XX ASDIRECTED PRN Pharmacy to Dose - Potassium R [Pharmacy to Dose - Med 09/11/18 09:15 Active Potassium Replacement] 0 dose .XX ASDIRECTED PRN Remove Patch Med 09/12/18 17:00 Active 1 ea TRDERM Q72H Medication Orders Aspirin (Ecotrin) 325 mg PO BID [facility] Last Admin: 09/11/18 08:05 Dose: 325 mg Admin: 09/10/18 20:36 Dose: 325 mg Admin: 09/10/18 09:10 Dose: 325 mg Bisacodyl (Dulcolax) 5 mg PO DAILY PRN PRN Reason: Constipation Cholecalciferol (Vitamin D3) 1,000 units PO DAILY [facility] Last Admin: 09/11/18 08:05 Dose: 1,000 units Admin: 09/10/18 09:09 Dose: 1,000 units Clonazepam (Klonopin) 1 mg PO BEDTIME PRN PRN Reason: Insomnia Docusate Sodium (Colace) 100 mg PO BID [facility] Last Admin: 09/11/18 08:06 Dose: 100 mg Admin: 09/10/18 20:34 Dose: 100 mg Admin: 09/10/18 09:10 Dose: 100 mg Admin: 09/09/18 21:57 Dose: 100 mg Famotidine (Pepcid) 20 mg PO DAILY [facility] Ketorolac Tromethamine (Toradol) 30 mg IVPUSH ONETIME PRN PRN Reason: Pain Losartan Potassium (Cozaar) 100 mg PO DAILY [facility] Last Admin: 09/11/18 09:37 Dose: 100 mg Magnesium Hydroxide (Milk Of Magnesia) 30 ml PO BID PRN PRN Reason: Constipation Magnesium Oxide (Magnesium Oxide) 400 mg PO TID [facility] Stop: 09/11/18 21:01 Last Admin: 09/11/18 15:07 Dose: 400 mg Admin: 09/11/18 09:35 Dose: 400 mg Magnesium Sulfate (Pharmacy To Dose - Magnesium Replacement) 0 dose .XX ASDIRECTED PRN PRN Reason: RX TO WATCH MAG LEVELS Miscellaneous Information (Remove Patch) 1 ea TRDERM Q72H [facility] Morphine Sulfate (Morphine) 2 mg IVPUSH Q2H PRN PRN Reason: Breakthrough Pain Last Admin: 09/10/18 07:52 Dose: 2 mg Multivitamins (Thera) 1 each PO DAILY [facility] Last Admin: 09/11/18 08:05 Dose: 1 each Admin: 09/10/18 09:10 Dose: 1 each Naloxone HCl (Narcan) 0.1 mg IVPUSH Q5M PRN PRN Reason: Oversedation Ondansetron HCl (Zofran) 4 mg IVPUSH Q6H PRN PRN Reason: Nausea/Vomiting Last Admin: 09/11/18 09:34 Dose: 4 mg Admin: 09/10/18 07:56 Dose: 4 mg Admin: 09/09/18 19:18 Dose: 4 mg Admin: 09/09/18 12:39 Dose: 4 mg Oxycodone/Acetaminophen (Percocet 325-5 Mg) 1 - 2 tab PO Q4H PRN PRN Reason: Pain Last Admin: 09/11/18 16:38 Dose: 2 tab Potassium Chloride (Pharmacy To Dose - Potassium Replacement) 0 dose .XX ASDIRECTED PRN PRN Reason: RX TO WATCH K LEVELS Pramipexole Dihydrochloride (Mirapex) 0.25 mg PO BEDTIME PRN PRN Reason: restless legs Last Admin: 09/10/18 19:45 Dose: 0.25 mg Scopolamine (Transderm-Scop) 1.5 mg TRDERM Q72H DARLY[facility] Last Admin: 09/09/18 17:46 Dose: 1.5 mg Senna (Senna) 8.6 mg PO BID PRN PRN Reason: Constipation Last Admin: 09/11/18 08:06 Dose: 8.6 mg Tizanidine HCl (Zanaflex) 2 mg PO Q8H PRN PRN Reason: Spasms Last Admin: 09/11/18 11:18 Dose: 2 mg Admin: 09/10/18 19:45 Dose: 2 mg - Assessment Assessment (Free Text/Narrative):: POD#2 - left TKA with right knee cortisone injection - Plan Plan (Free Text/Narrative):: 1. Discussion undertaken re: pain medication use. Daughter states pt's pain has not been controlled. Discussed IV and PO medication use. Pt with significant co-morbidities that increase risk of respiratory depression with pain medication use. Decision made to d/c [place] and trial oxycodone 5mg to 10mg PO every 6 hours alternating with supplemental Tylenol and nursing staff is to notify if persistent complaints of pain noted. Discussed preference for no OTC or rx NSAIDs for routine use due to use ASA PO BID for VTE prophylaxis. Increased risk of bleeding, GI and renal concerns with routine NSAID use at this time. Discussed tizanidine use and affect on respiratory status. Tizanidine rx was provided by PCP pre-operatively and continued during Hospitalization with monitoring of O2 sats and respirations. Pt and daughter verbalized understanding of need for close monitoring of respiratory status with use of narcotic medications, especially with pt's co-morbidities. Discussed home O2 use also and will continue to monitor for need. 2. Suspect d/c to home with Home Health vs. long-term placement for continued rehabilitation. 3. Medical management per Hospitalist service. The pt's case was discussed with Dr. Aiken.
[2018-09-11] MEDS: Pramipexole 0.25 MG Tab PO PRN (21:36)
[2018-09-12] MEDS: oxyCODONE 5 MG Tab PO PRN ×3 (01:16→15:42)
[2018-09-12] MEDS: Acetaminophen 325 MG/10.15 ML ML PO PRN ×2 (04:39→11:53)
[2018-09-12] MEDS: Multivitamins,Therapeutic Tab PO SCH (08:15)
[2018-09-12] MEDS: Docusate Sodium 100 MG Cap PO SCH (08:15)
[2018-09-12] MEDS: Cholecalciferol (Vitamin D3) 1,000 Unit Tab PO SCH (08:15)
[2018-09-12] MEDS: Losartan 100 MG Tab PO SCH (08:15)
[2018-09-12] MEDS: Aspirin 325 MG Tab.EC PO SCH (08:16)
[2018-09-12] MEDS ORDERED: Famotidine 20 MG Tab PO SCH (09:00)
[2018-09-12] MEDS ORDERED: Diphtheria,Pertussis(Acell),Tetanus Vaccine 0.5 ML Syringe IM ONE (14:17)
[2018-09-12] MEDS: Scopolamine 1.5 MG Transdermal Patch TRDERM SCH (16:35)
[2018-09-12] MEDS ORDERED: Remove Patch*SCOPOLAMINE TRDERM SCH (17:00)
--- NOTE | 2018-09-13 13:44 | PCM.OPNOTE ---
- General Post-Op/Procedure Note Date of Surgery/Procedure: 09/09/18 Operative Procedure(s): left total knee arthroplsty with right knee corticosteroid injection Pre Op Diagnosis: bilateral knee osteoarthrosis Post-Op Diagnosis: Same Anesthesia Technique: General ET Tube, Local Primary Surgeon: German Aiken Anesthesia Provider: Emanuel Swartz Jewel Hole Finish Opener: Toshia Rinaldi Jewel Hole Finish Opener: Lotus Hernandez EBL in mLs: 20 Complications: None Condition: Good Free Text/Narrative:: Intake & Output 09/12/18 09/13/18 09/13/18 22:59 06:59 14:59 Intake Total 1120 Output Total 1100 Balance 20 size 2/2 50mm stems x2 9mm 27x8
--- NOTE | 2018-09-13 14:49 | OR ---
DATE OF OPERATION: 09/09/2018 SURGEON: German Aiken MD OPERATION PERFORMED: Left total knee arthroplasty with right knee corticosteroid injection. PREOPERATIVE DIAGNOSIS: Bilateral knee osteoarthrosis. POSTOPERATIVE DIAGNOSIS: Bilateral knee osteoarthrosis. ANESTHESIA: General endotracheal intubation with local. ANESTHESIA PROVIDER: Yady Swartz. AUTOMATIC ENGRAVER: Toshia Rinaldi PA-C and Lotus Hernandez LPN. ESTIMATED BLOOD LOSS: 20 mL. COMPLICATIONS: None. CONDITION: Stable. IMPLANT: 1. [place] size 2 cemented PS femur. 2. [place] size 2 cemented [place] tibial baseplate. 3. [place] 50 mm stems x2 on both the tibia and the femur. 4. [place] size 2 9 mm TS polyethylene. 5. [place] size 27 x 8 mm concentric cemented patella. DESCRIPTION OF PROCEDURE: Patient was identified in the preop holding area. Proper site was marked and identified by the surgeon. The patient was taken back to the operating theater, where after adequate anesthesia, the patient's left lower extremity had a nonsterile tourniquet applied and it was then sterilely prepped and draped in the usual sterile fashion. OR time-out was performed. The patient received 2 g IV Ancef. At this time, the left lower extremity was exsanguinated. The patient only had a range of motion from roughly 15 to 40 degrees with severe ankylosis. At this time, left lower extremity was exsanguinated. Tourniquet was insufflated to 250 mmHg. A standard medial parapatellar incision was made and medial parapatellar arthrotomy was created. At this time, the patient was noted to have severe patella [place] from years of significant contracture of the left knee. At this time, we did contemplate to not resurfacing the patella, but at this time secondary to the patient's severe pain, I had to go back again, so I did resect the patella to a 13, but at this point, it was noted to be very, very soft bone, severely osteoporotic of the patella, and at this point, it was even showing signs of a hairline crack near the inferior pole, but the patella in whole was staying intact. The drill holes were then drilled. At this point, attention was turned to the distal femur. The patient had very severe contraction deformity, it was very difficult to maneuver the knee and get it to flexion secondary to the patient's severe contracture. A drill hole was placed in the distal femur. The intramedullary distal femoral cutting guide was then placed and 10 was taken off the distal femur for an adequate resection. Attention was turned to the sizing guide and sizing guide was found to be a size 2. Epicondylar access holes were then drilled. The patient was again noted to have severely soft osteoporotic bone especially of the lateral condyle. At this time, the size 2 cutting block was placed anterior posterior and anterior posterior chamfer cuts were then completed, found to be adequate. At this time, the box cut for the TS component was placed and the box cut was completed. I did use hand reamers up to a 14 for a size 12 mm stem down the femoral shaft at this time. At this time, attention was turned to the femur. Posterior as well as medial lateral retractors were placed. Again, it was very difficult to get visualization secondary to the patient's severe contractures. Once this was done, intramedullary tibial cutting guide was placed after drill hole was placed in the old footprint of the ACL. Once this was placed, 2 mm resected off the medial defect. It was found to be an adequate resection. At this time, posterior osteophytes were removed of the femur. There was severe posterior osteophytes and this did take significant amount of time. Once this was completed, the reamer was then done down the canal of the tibia up to size 14 for a 12 mm stem. Trial implants were then placed. The patient was noted to have 2 degrees short of full extension and had full flexion. The patient's patella was not tracking secondary to previous scarring noted at the patella, but it was centrally located with no signs of dislocation. At this time, cement was mixed on the back table. The components of a size 2 stem as well size 2 tibia were then constructed on the back table with 50 mm stem. A wedge of bone was used as a bone plug in the tibia. Once the cement was ready, the tibial component was stamped and drilled in the proper rotation. All cut surfaces were irrigated with pulse lavage irrigation with Ancef and then completely dried. The size 2 tibial component was then impacted into place and cemented into place. The size 2 femur was impacted into place and cemented into place. The TS component was then impacted into place and the patient's knee was brought into full extension. Excess cement was removed. The 27 x 8 mm patella was then also cemented into place, but again the patient was noted to have severe osteoporosis as well as bone loss after the resection. At this time, the patient's knee was left in full extension while the cement dried. 1 L dilute Betadine solution was irrigated through the knee along with 3 L pulse lavage irrigation with Ancef. Periarticular injection was then completed. Once the cement had hardened, #2 barbed suture was used for closure of the medial parapatellar arthrotomy. 2-0 Vicryl was used subcutaneously and Prineo was used for the skin. The patient was placed in a sterile soft dressing and sent to the PACU in stable condition. Before this was completed, under sterile technique, 2 mL of 40 mg Kenalog and 4 mL of 0.25% Marcaine were injected to the right knee as well. 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 KENDELLODAL /[id number]
== END 2018-09-12 17:09 | disposition home or self-care (01) | DRG 470 ==
LOC: JD.SDS 06:22 → JD.MS 06:23
PROVIDERS: ADMIT Orthopaedic Surgery; ATTEND Orthopaedic Surgery
PROC: 3E0U33Z Introduction of Anti-inflammatory into Joints, Percutaneous Approach (ICD-10-PCS; principal; 2018-09-09)
PROC: 0SRD0J9 Replacement of Left Knee Joint with Synthetic Substitute, Cemented, Open Approach (ICD-10-PCS; principal; 2018-09-09)
PROC: 3E0U3BZ Introduction of Anesthetic Agent into Joints, Percutaneous Approach (ICD-10-PCS; principal; 2018-09-09)
PROC: 3E0T3BZ Introduction of Anesthetic Agent into Peripheral Nerves and Plexi, Percutaneous Approach (ICD-10-PCS; 2018-09-09)
PROC: 3E0234Z Introduction of Serum, Toxoid and Vaccine into Muscle, Percutaneous Approach (ICD-10-PCS; 2018-09-12)
DX: M17.0 Bilateral primary osteoarthritis of knee (principal); I10 Essential (primary) hypertension; F51.04 Psychophysiologic insomnia; R11.0 Nausea; R09.02 Hypoxemia; E83.42 Hypomagnesemia; G89.18 Other acute postprocedural pain; M81.0 Age-related osteoporosis without current pathological fracture; M24.562 Contracture, left knee; G47.62 Sleep related leg cramps; F41.9 Anxiety disorder, unspecified; F32.9 Major depressive disorder, single episode, unspecified; G89.29 Other chronic pain; M89.669 Osteopathy after poliomyelitis, unspecified lower leg; B91 Sequelae of poliomyelitis; E78.5 Hyperlipidemia, unspecified; M41.9 Scoliosis, unspecified; H54.7 Unspecified visual loss; Z98.891 History of uterine scar from previous surgery; Z23 Encounter for immunization; Z88.5 Allergy status to narcotic agent; Z87.891 Personal history of nicotine dependence; Z79.82 Long term (current) use of aspirin; Z79.899 Other long term (current) drug therapy
CPT/HCPCS: 01402; 36415; 64450; 71046; 71046-26; 73560-26-LT; 73560-LT; 80048; 80053; 83735; 83880; 85025; 85027; 87641; 90471; 90700; 94761; 97110-GP; 97116-GP; 97161-GP; 97166-GO; 97530-GO; 97535-GO; A9270-GY; C1713; C1776; J0171; J0690; J0697; J1885; J2001; J2250; J2270; J2405; J2704; J2795; J3010; J3301; J3370; J3490; J7050; J7120

== ENCOUNTER 2019-07-29 18:28 | Emergency (ER) | payer MEDICARE, BC ==
--- NOTE | 2019-07-29 19:59 | EDM.PDOC ---
ED HPI GENERAL MEDICAL PROBLEM - General Chief Complaint: Headache Stated Complaint: EYE PROBLEMS Time Seen by Provider: 07/29/19 19:05 Source of Information: Reports: Patient, Family (daughter), RN Notes Reviewed - History of Present Illness INITIAL COMMENTS - FREE TEXT/NARRATIVE: 79 year old female has been referred here to the ED from the clinic for 2 problems, dyspnea worsening over the last week, visual symptoms that started about 4 days ago. Last know well from a Neurologic standpoint 4 days ago. Patient is not exactly sure but she thinks she had onset of visual blurriness 4 days ago and than [place] 3 days ago. At around 3 days ago she realized that she had loss of R peripheral vision. There has been no focal weakness or difficulty walking. No speech difficulty, no facial droop. she contined to have R peripheral vision loss upon arrival to clinic this late afternoon and upon arrival to ED a short time ago. She also has been more short of breath for the past 1 to 2 months but especially the last week. She used to walk around the house for exercise and now with even minimal walking she is very short of breath. Not coughing any more than ususal, no fever or chills. No peripheral leg edema. No chest pain, abd pain, nausea or vomiting. She does take ASA 325 mg q hs, has not had any aspirin yet today. She was seen by Dr Orosco late this afternoon, he did order some initial labs, ordered head CT which was already done prior to patient arrival to the ED. She does have hx of polio as a child. She developed severe kyphosis secondary to that. She had a "spinal fusion" at age 10. She has chronic restrictive lung disease. She does not use oxygen at home. She has no known or documented hx of CHF, CAD. she does have probable CODP with over 50 yr smoking hx, finally quit smoking about 1 yr ago. - Related Data Allergies Allergy/AdvReac Type Severity Reaction Status Date / Time codeine Allergy Nausea Verified 07/29/19 18:52 Home Meds: Home Meds Multivitamin [Daily Multiple Vitamin] 1 tab PO DAILY 09/06/18 [History] Pramipexole [Mirapex] 0.25 mg PO BEDTIME PRN 09/06/18 [History] clonazePAM [Clonazepam] 1 mg PO BEDTIME PRN 09/06/18 [History] tiZANidine [Zanaflex] 4 mg PO BEDTIME 09/06/18 [History] Cholecalciferol (Vitamin D3) [Vitamin D3] 1 cap PO DAILY 09/09/18 [History] Aspirin 325 mg PO DAILY 07/29/19 [History] Magnesium 1 tab PO DAILY 07/29/19 [History] Potassium Gluconate [Potassium] 1 tab PO DAILY 07/29/19 [History] Valsartan 1 tab PO DAILY 07/29/19 [History] Past Medical History HEENT History: Reports: Impaired Vision Cardiovascular History: Reports: Hypertension Respiratory History: Reports: None Gastrointestinal History: Reports: None Genitourinary History: Reports: None 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: Musculoskeletal History: Reports: Arthritis, Other (See Below) Other Musculoskeletal History: restless leg syndrome, polio with back surgery/ hardware Neurological History: Reports: Other (See Below) Other Neuro History: Minimal muscular control with extension on lower left leg Psychiatric History: Reports: Anxiety, Depression Endocrine/Metabolic History: Reports: None Hematologic History: Reports: None Immunologic History: Reports: None Oncologic (Cancer) History: Reports: None Dermatologic History: Reports: None - Infectious Disease History Infectious Disease History: Reports: Other (See Below) Other Infectious Disease History: Polio - Past Surgical History Head Surgeries/Procedures: Reports: None HEENT Surgical History: Reports: Tonsillectomy Cardiovascular Surgical History: Reports: None Respiratory Surgical History: Reports: None GI Surgical History: Reports: Appendectomy Female Surgical History: Reports: Section Endocrine Surgical History: Reports: None Neurological Surgical History: Reports: Other (See Below) Other Neurological Surgeries/Procedures: polio with back hardware Musculoskeletal Surgical History: Reports: Other (See Below) Other Musculoskeletal Surgeries/Procedures:: left foot surgery Oncologic Surgical History: Reports: None Dermatological Surgical History: Reports: None - History Comment History Comment: severe back deformity- family requests spinal- i assured I would try that first and if not do general Social & Family History - Family History HEENT: Reports: Retinal Detachment Cardiac: Reports: Cardiomyopathy, Hypertension GI: Reports: Cholelithiasis OBGYN: Reports: Musculoskeletal: Reports: Arthritis, Gout, RA Neurological: Reports: CVA Endocrine/Metabolic: Reports: Hypothyroidism Immunologic: Reports: None - Caffeine Use Caffeine Use: Reports: Coffee Other Caffeine Use: Morning. ED ROS GENERAL - Review of Systems Review Of Systems: See Below Constitutional: Denies: Fever, Chills, Diaphoresis Respiratory: Reports: Shortness of Breath. Denies: Cough Cardiovascular: Denies: Chest Pain Endocrine: Reports: Fatigue GI/Abdominal: Denies: Abdominal Pain, Nausea, Vomiting Musculoskeletal: Denies: Shoulder Pain, Arm Pain Skin: Denies: Rash Neurological: Reports: Dizziness, Headache (gone), Difficulty Walking (due to shortness of breath, no focal weakness upper or lower extrem. ), Other (no facial droop). Denies: Numbness, Tingling, Weakness, Change in Speech ED EXAM, GENERAL - Physical Exam Exam: See Below General Appearance: Alert, No Apparent Distress Eye Exam: Bilateral Eye: EOMI, PERRL, Other (loss of R visual field vision, L nl ) Throat/Mouth: Normal Inspection, Normal Oropharynx, Other (no facial droop) Head: No: Facial Swelling Neck: Supple, Other (no JVD) Respiratory/Chest: Respiratory Distress (moderate tachypnea). No: Rhonchi, Wheezing Cardiovascular: Regular Rate, Rhythm GI/Abdominal: Soft, Non-Tender Back Exam: Other (R back deformity) Extremities: No: No Pedal Edema, Leg Pain, Increased Warmth, Redness Neurological: Alert, Oriented, No Motor/Sensory Deficits, Other (finger to nose testing nl, no facial droop) Skin Exam: Warm, Dry, Normal Color EKG INTERPRETATION EKG Date: 07/29/19 Rhythm: NSR [place]: Normal P-Wave: Present QRS: Other (q waves lead III.) ST-T: Normal Course - Vital Signs Last Recorded V/S: Last Vital Signs Temp 99.6 F 07/29/19 18:42 Pulse 83 07/30/19 00:01 Resp 21 H 07/30/19 00:16 BP 168/77 H 07/30/19 00:16 Pulse Ox 92 L 07/30/19 00:01 - Orders/Labs/Meds Orders: Active Orders 24 hr Category Date Time Status EKG Documentation Completion [RC] ASDIRECTED Care 07/29/19 19:25 Active Oxygen Therapy [RC] ASDIRECTED Care 07/29/19 19:22 Active Peripheral IV Care [RC] . DIRECTED Care 07/29/19 20:32 Active RT Aerosol Therapy [RC] ASDIRECTED Care 07/29/19 22:35 Active Ang Head [CT] Stat Exams 07/29/19 21:15 Taken Ang Neck [CT] Stat Exams 07/29/19 21:06 Taken CULTURE BLOOD [BC] Stat Lab 07/29/19 19:49 Received Peripheral IV Insertion Adult [OM.PC] Stat Oth 07/29/19 20:32 Ordered EKG 12 Lead [EK] Stat Ther 07/29/19 19:25 Ordered Labs: Laboratory Tests 07/29/19 07/29/19 07/29/19 Range/Units 19:49 19:49 19:49 PT 12.4 H (9.7-12.0) SECONDS INR 1.15 Puncture Site ABG pH (7.35-7.45) ABG pCO2 (35.0-45.0) mmHg ABG pO2 (80.0-100.0) mmHg ABG HCO3 (22.0-26.0) meq/L ABG O2 Saturation (96.0-97.0) % ABG Base Excess (-2-2.0) Kameron Test O2 Delivery Device FiO2 (21.00-100.00) % C-Reactive Protein 0.7 (<1.0) mg/dL NT-Pro-B Natriuret Pep 9932 H (0-450) pg/mL 07/29/19 Range/Units 21:08 PT (9.7-12.0) SECONDS INR Puncture Site Rt radial ABG pH 7.40 (7.35-7.45) ABG pCO2 50.2 H (35.0-45.0) mmHg ABG pO2 52.0 L (80.0-100.0) mmHg ABG HCO3 30.3 H (22.0-26.0) meq/L ABG O2 Saturation 77.1 L (96.0-97.0) % ABG Base Excess 4.6 H (-2-2.0) K[place]on Test Positive O2 Delivery Device Room air FiO2 0.00 L (21.00-100.00) % C-Reactive Protein (<1.0) mg/dL NT-Pro-B Natriuret Pep (0-450) pg/mL Meds: Medications Discontinued Medications Generic Name Dose Route Start Last Admin Trade Name Freq PRN Reason Stop Dose Admin Albuterol/Ipratropium 3 ml 07/29/19 22:35 07/29/19 22:50 Duoneb 3.0-0.5 Mg/3 Ml NEB 07/29/19 22:36 3 ml ONETIME ONE Administration Aspirin 324 mg 07/29/19 20:40 07/29/19 21:01 Aspirin PO 07/29/19 20:41 324 mg ONETIME ONE Administration Heparin Sodium (Porcine) 3,360 units 07/29/19 23:58 07/30/19 00:16 Heparin Sodium IVPUSH 07/29/19 23:59 3,360 units .BOLUS ONE Administration Lactated Ringer's 1,000 mls @ 150 mls/hr 07/29/19 20:45 07/29/19 20:40 Ringers, Lactated IV 150 mls/hr ASDIRECTED DARLYN Administration Heparin Sodium/Dextrose 25,000 units in 500 mls @ 13.499 mls/hr 07/29/19 23: 45 07/30/19 00:11 Heparin 25,000 Units In D5w 500 Ml IV 12 units/kg/hr TITRATE DARLYN 13.499 mls/hr Administration Protocol 12 UNITS/KG/HR Sodium Chloride 10 ml 07/29/19 20:32 07/29/19 20:49 Saline Flush FLUSH 10 ml ASDIRECTED PRN Administration Keep Vein Open - Re-Assessments/Exams Free Text/Narrative Re-Assessment/Exam: 07/29/19 20:15. I was not yet to work upon patient arrival to ED but it is my understanding that this was not called a stroke alert. I don't believe the triage nurse was aware of stroke or thinking stroke upon patient arrival to ED. Head CT was already done upon arrival to ED but report or findings were not known upon patient arrival. It did take me some time to sort out what had been done, what the main issues were. I was initially most concerned about her hypoxia, and to try figure out why she was acutely hypoxic. I did order ABG's room air but RT was having difficulty getting them drawn so I canceled ABG's until later when we bacame aware that she had abnl CT showing acute sroke. Radiology report of CT reported infarct medial L occipital lobe and able to pull up the CT that shows what looks like completed infarct medial left occipital lobe, see Radiologist report for details. CXR shows severe scoliosis and kyphosis. No acute findings per Radiologist report of CXR. Labs reviewed from clinic show WBC 8,400, Hgb 17.7, lactic acid 1.6, creat 1.0, glucose 103, CRP 0.8. 21:30. Have discussed with Dr Lopez regarding possible admission. She does want us to get ABG's, CTA and than look at options. 07/29/19 22:09 ABG on room air shows p02 of 52, pc02 of 50.2 , ph 7.4. have done CTA of head and neck, awaiting processing of images and Radiology read. Visual acuity 20/70 right, 20/30 L, both 20/30. 07/29/19 23:35. CTA shows 75 % stenosis proximal L carotid artery. CTA brain did not show acute findings other than edema area of occipital stroke, see Radiology reports for details. 23;55. Have discussed with Hospitalist [facility] and also Vascular Surgeon , Dr Caceres who does recomend to start IV heparin and transfer, Dr Garza, Hospitalist accepting Phys, Heparin bolus and drip ordered and started, she will transferred by ground ambulance, vitals, condition stable at time of transfer, o2 sats currently 92 %. Departure - Departure Time of Disposition: 23:45 Disposition: DC/Tfer to Acute Hospital 02 Condition: Fair, Serious Clinical Impression: Acute ischemic stroke, Hypoxia COPD (chronic obstructive pulmonary disease) Qualifiers: COPD type: unspecified COPD Qualified Code(s): J44.9 - Chronic obstructive pulmonary disease, unspecified Carotid artery stenosis Qualifiers: Laterality: left Qualified Code(s): I65.22 - Occlusion and stenosis of left carotid artery - Discharge Information Referrals: Abhishek Franco MD [Primary Care Provider] - Forms: ED Department Discharge Sepsis Event Note - Evaluation Sepsis Screening Result: No Definite Risk - Focused Exam Vital Signs: Vital Signs Temp Pulse Pulse Resp BP BP Pulse Ox 07/30/19 00:16 21 H 168/77 H 07/30/19 00:15 35 H 07/30/19 00:01 83 25 H 92 L 07/30/19 00:00 81 26 H 152/89 H 92 L 07/29/19 23:59 81 22 H 94 L 07/29/19 23:46 82 24 H 150/88 H 92 L 07/29/19 23:45 82 29 H 95 07/29/19 23:31 87 31 H 167/89 H 94 L 07/29/19 23:30 84 29 H 94 L 07/29/19 23:16 81 27 H 158/79 H 94 L 07/29/19 23:15 80 26 H 93 L 07/29/19 23:01 81 26 H 161/75 H 94 L 07/29/19 23:00 80 23 H 94 L 07/29/19 22:57 83 18 94 L 07/29/19 22:54 07/29/19 22:46 78 22 H 150/82 H 98 07/29/19 22:45 80 20 96 07/29/19 22:31 79 23 H 149/83 H 94 L 07/29/19 22:30 79 20 94 L 07/29/19 22:16 18 145/80 H 07/29/19 22:15 79 25 H 91 L 07/29/19 22:12 82 23 H 152/83 H 91 L 07/29/19 22:11 81 23 H 91 L 07/29/19 22:00 89 39 H 76 L 07/29/19 21:00 25 H 07/29/19 20:00 85 23 H 92 L 07/29/19 19:31 88 27 H 171/93 H 77 L 07/29/19 19:30 86 28 H 78 L 07/29/19 19:27 87 25 H 81 L 07/29/19 18:42 99.6 F 88 20 160/93 H 80 L Pulse Ox 07/30/19 00:16 07/30/19 00:15 07/30/19 00:01 07/30/19 00:00 07/29/19 23:59 07/29/19 23:46 07/29/19 23:45 07/29/19 23:31 07/29/19 23:30 07/29/19 23:16 07/29/19 23:15 07/29/19 23:01 07/29/19 23:00 07/29/19 22:57 07/29/19 22:54 92 L 07/29/19 22:46 07/29/19 22:45 07/29/19 22:31 07/29/19 22:30 07/29/19 22:16 07/29/19 22:15 07/29/19 22:12 07/29/19 22:11 07/29/19 22:00 07/29/19 21:00 07/29/19 20:00 07/29/19 19:31 07/29/19 19:30 07/29/19 19:27 07/29/19 18:42 Date Exam was Performed: 07/30/19 Time Exam was Performed: 02:25 ED Communication - Discussed Case With (1) Discussed Case With (1): Admitting Provider (John) - My Orders Last 24 Hours: My Active Orders 07/29/19 19:22 Oxygen Therapy [RC] ASDIRECTED 07/29/19 19:25 EKG Documentation Completion [RC] ASDIRECTED EKG 12 Lead [EK] Stat 07/29/19 19:49 CULTURE BLOOD [BC] Stat 07/29/19 20:32 Peripheral IV Care [RC] . DIRECTED Peripheral IV Insertion Adult [OM.PC] Stat 07/29/19 21:06 Ang Neck [CT] Stat 07/29/19 21:15 Ang Head [CT] Stat 07/29/19 22:35 RT Aerosol Therapy [RC] ASDIRECTED - Assessment/Plan Last 24 Hours: My Active Orders 07/29/19 19:22 Oxygen Therapy [RC] ASDIRECTED 07/29/19 19:25 EKG Documentation Completion [RC] ASDIRECTED EKG 12 Lead [EK] Stat 07/29/19 19:49 CULTURE BLOOD [BC] Stat 07/29/19 20:32 Peripheral IV Care [RC] . DIRECTED Peripheral IV Insertion Adult [OM.PC] Stat 07/29/19 21:06 Ang Neck [CT] Stat 07/29/19 21:15 Ang Head [CT] Stat 07/29/19 22:35 RT Aerosol Therapy [RC] ASDIRECTED
--- NOTE | 2019-07-29 20:10 | CR ---
Chest: Portable view of the chest was obtained. Comparison: Prior chest x-ray of 09/11/18. Heart is enlarged. Lungs show no acute parenchymal change. Scoliosis is noted within the spine. Bony structures are also osteopenic. Impression: 1. Findings as described above. 2. Nothing acute is appreciated on portable chest x-ray. Diagnostic code #2 Study was dictated in MDT
[2019-07-29] MEDS ORDERED: Sodium Chloride 0.9% 10 ML Syringe FLUSH PRN (20:32)
[2019-07-29] MEDS ORDERED: Aspirin 81 MG Tab.Chew PO ONE (20:40)
[2019-07-29] MEDS ORDERED: Lactated Ringers 1,000 ML IV SCH (20:45)
[2019-07-29] MEDS ORDERED: Albuterol/Ipratropium 3.0-0.5 MG/3 ML Neb Soln NEB ONE (22:35)
[2019-07-29] MEDS ORDERED: Heparin Sodium/D5W 25,000 UNITS/500 ML BAG IV SCH (23:45)
[2019-07-29] MEDS ORDERED: Heparin Sodium 5,000 Units/ML Vial IVPUSH ONE (23:58)
--- NOTE | 2019-07-30 07:47 | CT ---
CT angiogram of neck Technique: Multiple axial sections through the neck were obtained. Intravenous contrast was given in the arterial phase. Multiple MIP images were obtained. Comparison: No prior arterial neck imaging. Findings: Atherosclerotic plaque noted within both carotid bulbs. There is narrowing of the origin of both internal carotid arteries which is felt to be less than 50 percent. I do not appreciate a stenosis of 75 percent as noted on the preliminary ad report. Other portions of the internal carotid artery are patent into the cerebral arteries. Both vertebral arteries are patent into the basilar artery with dominant right vertebral artery. Diffuse disc space narrowing and endplate spurring noted within the spine with degenerative apophyseal change. Impression: 1. Atherosclerotic change within both carotid bulbs. This appears to cause narrowing of less than 50 percent on both sides. 2. 75 percent stenosis within the proximal left internal carotid artery is not appreciated as noted on the preliminary report from [facility]. If patient can cooperate and has satisfactory renal function, MRI angiogram could be considered to further evaluate this area. Alternatively, carotid ultrasound could be obtained. 3. No other focal areas of stenosis is seen. Diagnostic code #3 This report was dictated in MDT Questionable disagree with preliminary report from [facility] (please see above), finalized on 07/30/19, 12:16 AM Central Time
--- NOTE | 2019-07-30 07:47 | CT ---
MR angiogram of brain Technique: Multiple axial sections through the brain were obtained. Intravenous contrast was given during the arterial phase. Multiple MIP images were obtained. Comparison: No prior intracranial vascular imaging, previous head CT study performed earlier on the same day (5:11 PM). Findings: Both vertebral arteries are patent into the basilar artery. Basilar artery is patent into both cerebral arteries which show no stenosis. Internal carotid arteries are patent into the middle and anterior cerebral arteries which show no stenosis. No focal areas of occlusion are seen. No discrete aneurysm is appreciated on this exam. Impression: 1. No abnormality is appreciated on MR angiogram of brain. Diagnostic code #1 This report was dictated in MDT I agree with preliminary report from [facility], finalized on 07/30/19, 12:09 AM Central Time
== END 2019-07-30 00:49 ==
LOC: JD.ED 18:28
DX: I65.22 Occlusion and stenosis of left carotid artery (principal); I63.9 Cerebral infarction, unspecified; J44.9 Chronic obstructive pulmonary disease, unspecified; R09.02 Hypoxemia; I10 Essential (primary) hypertension; M19.90 Unspecified osteoarthritis, unspecified site; Z79.899 Other long term (current) drug therapy; Z79.82 Long term (current) use of aspirin; Z88.5 Allergy status to narcotic agent; H53.40 Unspecified visual field defects; H54.3 Unqualified visual loss, both eyes; D64.9 Anemia, unspecified; H53.139 Sudden visual loss, unspecified eye; M41.9 Scoliosis, unspecified; R54 Age-related physical debility; J34.89 Other specified disorders of nose and nasal sinuses
CPT/HCPCS: 36415; 36600; 70450; 70496; 70498; 71045; 80053; 80061; 82044; 82607; 82803; 83605; 83880; 84550; 85025; 85610; 86140; 87040; 93005; 96361; 96374; 99213; 99285; A9270; J1644; J7120; 93010; 99284; J7620-GY